=== PATIENT | female | born 1955 | race Caucasian/White ===

== ENCOUNTER 2017-07-19 19:48 | Emergency (ER) | payer OTHER, SELFPAY ==
[2017-07-19 20:28] VITALS: BP 116/71; PULSE 88; RESP 20; TEMP 36.8; O2SAT 98; BMI 26.6
[2017-07-19 20:29] VITALS: BP 116/71; PULSE 88; RESP 20; TEMP 36.8; O2SAT 98
[2017-07-19 20:30] VITALS: O2SAT 98
--- NOTE | 2017-07-19 21:03 | HMH.EDUTC ---
[facility] [place] Clinical Impression: Upper respiratory virus Disposition: Home, Self-Care Condition on Discharge: Good Instructions: DI for Viral Upper Respiratory Infection -- Adult Additional Instructions: * No sign of bacterial infection. Likely viral. Virus can take 7-14 days to run their course * Important that you closely monitor blood sugars when sick. Can get low if not eating well but can get high if infection. * Monitor Temp. Follow up if fever develops. * Encourage fluids, water, gatorade, powerade, pedialyte if /toddler/child * warm salt water gargles * warm fluids * sore throat lozenges * sleep elevated * humidifier/vaporizer * Start your flonase 2 sprays each nostril daily but may take 2-3 days to notice improvement with it. * Mucinex during the day for your cough and cough suppressant only at night. Be sure to drink lots of water. Insurance may not cover a prescription of mucinex. Might be cheaper to get 400mg tablets and take 2 tablets morning, midday and evening all with lots of water. * Use caution with otc cough and cold medications. Syrups can elevate your blood sugar and decongestants can elevate your blood pressure * * Your throat swab was sent for culture. Those results are typically sent to your primary care. Be sure to follow up in 2-3 days if no improvement so they can review those results and treat if necessary. If you don't have primary care, I recommend you get one but in the mean time, you will have to return to a walk in clinic. Referrals: Milton Tang MD [Primary Care Provider] - ( Follow up IMMEDIATELY for new or worsening symptoms OR no noticeable improvement over the next 48-72 hours. 911 for difficulty breathing or swallowing.) Time of Disposition: 21:15 Medical Decision Making Vital Signs: 07/19/17 20:28 07/19/17 20:29 07/19/17 20:30 Temperature 98.2 F 98.2 F Temperature Source Oral Tympanic Pulse Rate [Left Brachial] 88 Pulse Rate [Right Brachial] 88 Respiratory Rate 20 20 Blood Pressure [Left Arm] 116/71 Blood Pressure [Right Arm] 116/71 Blood Pressure Mean [Left Arm] 86 Blood Pressure Mean [Right Arm] 86 Blood Pressure Source [Left Arm] Automatic Cuff Blood Pressure Source [Right Arm] Automatic Cuff Blood Pressure Position [Left Arm] Sitting Blood Pressure Position [Right Arm] Sitting 02 Sat by Pulse Oximetry 98 98 98 Oxygen Delivery Method Room Air Room Air Room Air - Lab Data Lab results reviewed: Yes: I reviewed the patient's lab results. Lab Results 07/19/17 20:38: Influenza Type A Ag Negative, Influenza Type B Ag Negative, Strep Scn Rapid Clinic Negative Orders (Tests/Meds): ORDERS Category Date Time Status Strep Screen Confirmation Stat Micro 07/19/17 20:38 Received - [place] Inquiry Pt receiving controlled substance: No [facility] [place] - General Stated complaint: ear.sore throat.cough Time Seen by Provider: 07/19/17 20:55 Mode of Arrival: Ambulatory Source of Information: Patient Limitations: No Limitations Description of Symptoms (Recalled from Triage Doc. by RN): c/o sore throat, earache, cough HEENT Symptoms (Recalled from RN notes): Yes (sore throat, earache) Resp Symptoms (Recalled from RN notes): Yes (cough) Skin Symptoms (Recalled from RN notes): No MS Symptoms (Recalled from RN notes): No Functional Status (Recalled from RN notes): n/a - History of Present Illness Provider Complaint: c/o sore throat, rona ear aches, cough. Started 2-3 days ago. Spouse with same symptoms. Dx sinusitis and ear infections. No fever, aches, chills. Hasn't taken or tried anything for symptoms. Has flonase at home but didn't start it. 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
--- NOTE | 2017-07-19 21:06 | ED_ITS ---
[facility] [place] Impression: Upper respiratory virus Disposition: Home, Self-Care Condition on Discharge: Good Instructions: DI for Viral Upper Respiratory Infection -- Adult Additional Instructions: * No sign of bacterial infection. Likely viral. Virus can take 7-14 days to run their course * Important that you closely monitor blood sugars when sick. Can get low if not eating well but can get high if infection. * Monitor Temp. Follow up if fever develops. * Encourage fluids, water, gatorade, powerade, pedialyte if /toddler/ child * warm salt water gargles * warm fluids * sore throat lozenges * sleep elevated * humidifier/vaporizer * Start your flonase 2 sprays each nostril daily but may take 2-3 days to notice improvement with it. * Mucinex during the day for your cough and cough suppressant only at night. Be sure to drink lots of water. Insurance may not cover a prescription of mucinex. Might be cheaper to get 400mg tablets and take 2 tablets morning, midday and evening all with lots of water. * Use caution with otc cough and cold medications. Syrups can elevate your blood sugar and decongestants can elevate your blood pressure * * Your throat swab was sent for culture. Those results are typically sent to your primary care. Be sure to follow up in 2-3 days if no improvement so they can review those results and treat if necessary. If you don't have primary care , I recommend you get one but in the mean time, you will have to return to a walk in clinic. Referrals: Milton Tang MD [Primary Care Provider] - ( Follow up IMMEDIATELY for new or worsening symptoms OR no noticeable improvement over the next 48-72 hours. 911 for difficulty breathing or swallowing.) Time of Disposition: 21:15 Medical Decision Making Vital Signs: 07/19/17 20:28 07/19/17 20:29 07/19/17 20:30 Temperature 98.2 F 98.2 F Temperature Source Oral Tympanic Pulse Rate [Left Brachial] 88 Pulse Rate [Right Brachial] 88 Respiratory Rate 20 20 Blood Pressure [Left Arm] 116/71 Blood Pressure [Right Arm] 116/71 Blood Pressure Mean [Left Arm] 86 Blood Pressure Mean [Right Arm] 86 Blood Pressure Source [Left Arm] Automatic Cuff Blood Pressure Source [Right Arm] Automatic Cuff Blood Pressure Position [Left Arm] Sitting Blood Pressure Position [Right Arm] Sitting 02 Sat by Pulse Oximetry 98 98 98 Oxygen Delivery Method Room Air Room Air Room Air - Lab Data Lab results reviewed: Yes: I reviewed the patient's lab results. Lab Results 07/19/17 20:38: Influenza Type A Ag Negative, Influenza Type B Ag Negative, Strep Scn Rapid Clinic Negative Orders (Tests/Meds): ORDERS Category Date Time Status Strep Screen Confirmation Stat Micro 07/19/17 20:38 Received - [place] Inquiry Pt receiving controlled substance: No [facility] [place] - General Stated complaint: ear.sore throat.cough Time Seen by Provider: 07/19/17 20:55 Mode of Arrival: Ambulatory Source of Information: Patient Limitations: No Limitations Description of Symptoms (Recalled from Triage Doc. by RN): c/o sore throat, earache, cough HEENT Symptoms (Recalled from RN notes): Yes (sore throat, earache) Resp Symptoms (Recalled from RN notes): Yes (cough) Skin Symptoms (Recalled from RN notes): No MS Symptoms (Recalled from RN notes): No Functional Status (Recalled from RN notes): n/a - History of Present Illness
[2017-07-19 21:12] LABS: UTC Influenza A Antigen Negative (Negative); UTC Influenza B Antigen Negative (Negative)
[2017-07-19 21:13] LABS: UTC Strep Screen (Rapid) Negative (Negative)
[2017-07-19 21:30] VITALS: BP 116/71; PULSE 88; RESP 20; TEMP 36.8; O2SAT 98
== END 2017-07-19 21:31 | disposition home or self-care (01) ==
PROVIDERS: Emergency Provider Nurse Practitioner Family; PCP Internal Medicine Adolescent Medicine
DX: J06.9 Acute upper respiratory infection, unspecified (principal); F41.9 Anxiety disorder, unspecified
CPT/HCPCS: 87804; 87880; 99202

== ENCOUNTER 2017-08-21 11:05 | Emergency (ER) | payer OTHER, SELFPAY ==
[2017-08-21 11:20] VITALS: BP 123/67; PULSE 83; RESP 18; TEMP 36.8; O2SAT 98; BMI 36.5
--- NOTE | 2017-08-21 11:20 | XR_ITS ---
XR foot LT 2V HISTORY: Pain following twisting injury ITS.REASON: LEFT FOOT ORDERING PHYSICIAN: Lindsey Adams PATIENT AGE: 61 years COMPARISON: None FINDINGS: No fracture or dislocation. No lytic or blastic change. There is normal mineralization.. The joint spaces are well-preserved. No significant degenerative/arthritic changes. No erosive changes evident. 14 mm calcaneal spur present. IMPRESSION: No acute finding
--- NOTE | 2017-08-21 11:31 | HMH.EDUTC ---
[facility] [place] Clinical Impression: Foot sprain Qualifiers: Encounter type: initial encounter Laterality: left Qualified Code(s): S93.602A - Unspecified sprain of left foot, initial encounter Disposition: Home, Self-Care Condition on Discharge: Good Instructions: How To Perform RICE (Rest, Ice, Compress, Elevate), DI for Foot Sprain Additional Instructions: *RICE, Rest the extremity, Ice 15-20 minutes 3-4 times daily, Compress- wear the rico wrap as discussed as much as possible to help reduce swelling and pain, Elevate the extremity when at rest *Rico wrap is for support and help control swelling, use it except in the shower. Be sure that is not to tight but not to loose either *Elevate when resting *Ibuprofen every 6-8 hours as needed for pain an inflammation. If need something more can take Tylenol in between doses of Ibuprofen to help Immediately follow up for new or worsening of symptoms, or no noticeable improvement over the next 3-5 days Follow up with family doctor for referral to Orthopedics if warranted Referrals: Milton Tang MD [Primary Care Provider] - Time of Disposition: 11:57 Medical Decision Making - Medical Records Medical records reviewed: Yes: I reviewed the patient's medical records. Vital Signs: 08/21/17 11:20 Temperature 98.2 F Temperature Source Temporal Artery Scan Pulse Rate [Right] 83 Respiratory Rate 18 Blood Pressure [Right Arm] 123/67 Blood Pressure Mean [Right Arm] 85 Blood Pressure Source [Right Arm] Automatic Cuff Blood Pressure Position [Right Arm] Sitting 02 Sat by Pulse Oximetry 98 Oxygen Delivery Method Room Air - Radiology Data #1 Image(s): Foot/Toes Image Reviewed: Yes I have reviewed radiologist's interpretation Preliminary Findings: Normal/NAD, No Fracture Seen - [place] Inquiry Pt receiving controlled substance: No [place] was queried for this patient: No [facility] [place] - General Stated complaint: AO Mode of Arrival: Ambulatory Source of Information: Patient Limitations: No Limitations Description of Symptoms (Recalled from Triage Doc. by RN): FELL LAST NIGHT, INJURY LEFT FOOT HEENT Symptoms (Recalled from RN notes): No Resp Symptoms (Recalled from RN notes): No Skin Symptoms (Recalled from RN notes): No MS Symptoms (Recalled from RN notes): Yes Functional Status (Recalled from RN notes): N - History of Present Illness Provider Complaint: Patient state that she slipped in the mud last night and fell and she bent her left foot/ankle back State that her shoe flu off and she twisted that foot and ankle State that ever since she is having pain and mild swelling in the left foot - Related Data Home Medications Medication Instructions Recorded Confirmed Glimepiride [Glimepiride] 4 mg PO DAILY 08/21/17 08/21/17 No Known Home Medications [No 08/21/17 08/21/17 Known Home Medications] Valsartan/Hydrochlorothiazide 1 each PO DAILY 08/21/17 08/21/17 [Valsartan-Hctz 160-12.5 mg Tab] Allergies Allergy/AdvReac Type Severity Reaction Status Date / Time No Known Allergies Allergy Verified 08/21/17 11:26 - Worker's Comp Is this a Worker's Comp case?: No [facility] History I have reviewed the patient's past medical history: Yes Medical History: Reports:: Diabetes Mellitus Type 2, Hyperlipidemia, Hypertension Denies:: Cancer, Diabetes Mellitus Type 1, MRSA Laterality Cases: Left: Breast Biopsy, Bilateral: Tonsillectomy Other Surgeries: Yes: Other (left ovary removed) Amputation: No Fractures: No - *Social History Smoking Status: Never smoker Alcohol Intake: never - Psychiatric History Expresses thoughts of harming self/others: None Suicide Plan Description: No Plan ROS Obtained: Yes All systems reviewed & no additional complaints Physical Exam - General General appearance: alert, in no apparent distress - ENT ENT exam: Present: normal exam, normal oropharynx, mucous membranes moist, TM's normal bilaterally, normal external ear ex
--- NOTE | 2017-08-21 11:43 | ED_ITS ---
[facility] [place]: Foot sprain Qualifiers: Encounter type: initial encounter Laterality: left Qualified Code(s): S93.602A - Unspecified sprain of left foot, initial encounter Disposition: Home, Self-Care Condition on Discharge: Good Instructions: How To Perform RICE (Rest, Ice, Compress, Elevate), DI for Foot Sprain Additional Instructions: *RICE, Rest the extremity, Ice 15-20 minutes 3-4 times daily, Compress- wear the rico wrap as discussed as much as possible to help reduce swelling and pain, Elevate the extremity when at rest *Rico wrap is for support and help control swelling, use it except in the shower. Be sure that is not to tight but not to loose either *Elevate when resting *Ibuprofen every 6-8 hours as needed for pain an inflammation. If need something more can take Tylenol in between doses of Ibuprofen to help Immediately follow up for new or worsening of symptoms, or no noticeable improvement over the next 3-5 days Follow up with family doctor for referral to Orthopedics if warranted Referrals: Milton Tang MD [Primary Care Provider] - Time of Disposition: 11:57 Medical Decision Making - Medical Records Medical records reviewed: Yes: I reviewed the patient's medical records. Vital Signs: 08/21/17 11:20 Temperature 98.2 F Temperature Source Temporal Artery Scan Pulse Rate [Right] 83 Respiratory Rate 18 Blood Pressure [Right Arm] 123/67 Blood Pressure Mean [Right Arm] 85 Blood Pressure Source [Right Arm] Automatic Cuff Blood Pressure Position [Right Arm] Sitting 02 Sat by Pulse Oximetry 98 Oxygen Delivery Method Room Air - Radiology Data #1 Image(s): Foot/Toes Image Reviewed: Yes I have reviewed radiologist's interpretation Preliminary Findings: Normal/NAD, No Fracture Seen - [place] Inquiry Pt receiving controlled substance: No [place] was queried for this patient: No [facility] [place] General Stated complaint: AO Mode of Arrival: Ambulatory Source of Information: Patient Limitations: No Limitations Description of Symptoms (Recalled from Triage Doc. by RN): FELL LAST NIGHT, INJURY LEFT FOOT HEENT Symptoms (Recalled from RN notes): No Resp Symptoms (Recalled from RN notes): No Skin Symptoms (Recalled from RN notes): No MS Symptoms (Recalled from RN notes): Yes Functional Status (Recalled from RN notes): N - History of Present Illness Provider Complaint: Patient state that she slipped in the mud last night and fell and she bent her left foot/ankle back State that her shoe flu off and she twisted that foot and ankle State that ever since she is having pain and mild swelling in the left foot - Related Data Home Medications Medication Instructions Recorded Confirmed Glimepiride [Glimepiride] 4 mg PO DAILY 08/21/17 08/21/17 No Known Home Medications [No 08/21/17 08/21/17 Known Home Medications] Valsartan/Hydrochlorothiazide 1 each PO DAILY 08/21/17 08/21/17 [Valsartan-Hctz 160-12.5 mg Tab] Allergies Allergy/AdvReac Type Severity Reaction Status Date / Time No Known Allergies Allergy Verified 08/21/17 11:26 - Worker's Comp Is this a Worker's Comp case?: No [facility] History I have reviewed the patient's past medical history: Yes Medical History: Reports:: Diabetes Mellitus Type 2, Hyperlipidemia, Hypertension Denies:: Cancer, Diabetes Mellitus Type 1, MRSA
[2017-08-21 12:05] VITALS: BP 122/60; PULSE 80; RESP 18; TEMP 36.8
== END 2017-08-21 12:06 | disposition home or self-care (01) ==
PROVIDERS: Emergency Provider Nurse Practitioner; PCP Internal Medicine Adolescent Medicine
DX: S93.602A Unspecified sprain of left foot, initial encounter (principal); W19.XXXA Unspecified fall, initial encounter
CPT/HCPCS: 73620; 99202

== ENCOUNTER → 2018-06-09 09:40 | Outpatient (POV) | payer OTHER, SELFPAY | PROVIDERS: Visit Provider Dermatology | DX: Z00.00 Encounter for general adult medical examination without abnormal findings (principal) ==

== ENCOUNTER 2018-09-20 19:44 | Observation (INO) ==
[2018-09-20 20:12] LABS: Basophils # 0.1 K/mm3 (0-0.2); Basophils % 1.2 % (0.1-2.0); Eosinophils # 0.4 K/mm3 (0.0-0.4); Eosinophils % 4.9 % (0.1-12.0); Hematocrit 49.4 % (37.0-47.0); Hemoglobin 16.8 g/dL (12.2-16.2); Lymphocytes # 3.7 K/mm3 (0.7-4.5); Lymphocytes % 43.1 % (10-50); Mean Corpuscular Hemoglobin 31.5 pg (27.0-31.2); Mean Corpuscular Volume 92.5 fl (81-99); Mean Platelet Volume 7.4 fl (7.4-10.4); Monocytes # 0.5 K/mm3 (0.1-1.0); Monocytes % 5.8 % (1.7-9.3); Neutrophils # 3.9 K/mm3 (1.8-7.8); Platelet Count 254 K/mm3 (142-424); Red Blood Count 5.34 M/mm3 (4.20-5.40); Red Cell Distribution Width 13.1 % (11.5-17.5); White Blood Count 8.6 K/mm3 (4.8-10.8)
[2018-09-20 20:20] LABS: Anion Gap 18.7 mEq/L (5-15); Blood Urea Nitrogen 21 mg/dL (7-18); Carbon Dioxide 24 mmol/L (21.0-32.0); Chloride 100 mmol/L (98-107); Glucose 174 mg/dL (74-106); Potassium 3.7 mmoL/L (3.5-5.1); Sodium 139 mmol/L (136-145)
--- NOTE | 2018-09-20 21:12 | Emergency Department Note ---
ED Disposition Clinical Impression: Obesity (BMI 30-39.9) Chest pain Qualifiers: Chest pain type: precordial pain Qualified Code(s): R07.2 - Precordial pain Diabetes Qualifiers: Diabetes mellitus type: type 2 Diabetes mellitus ocean transportation intermediary insulin use: with halfway use Diabetes mellitus complication status: with unspecified complications Qualified Code(s): E11.8 - Type 2 diabetes mellitus with unspecified complications; Z79.4 - shelter (current) use of insulin Disposition: Admitted as Observation Condition on Discharge: Good Referrals: Milton Tang MD [Primary Care Provider] - - Critical Care Critical Care Time: No Attestation: On 09/20/18, the high probability of a clinically significant, sudden or life threatening deterioration of the following system(s) required my full and direct attention, intervention and personal management. The time I documented below is in addition to time spent performing reported procedures but includes the following listed in this critical care notation. Medical Decision Making - Medical Records Medical records reviewed: Yes: I reviewed the patient's medical records. - [place] Inquiry Pt receiving controlled substance: No Vital Signs: 09/20/18 19:45 09/20/18 20:36 09/20/18 20:55 Temperature 98.3 F Temperature Source Oral Pulse Rate [Right Brachial] 108 H 88 85 Respiratory Rate 18 18 20 Blood Pressure [Right Arm] 142/69 H 129/70 131/75 Blood Pressure Mean [Right Arm] 93 89 93 Blood Pressure Source [Right Arm] Automatic Cuff Automatic Cuff Automatic Cuff Blood Pressure Position [Right Arm] Sitting Sitting Sitting 02 Sat by Pulse Oximetry 95 96 95 Oxygen Delivery Method Room Air Room Air Room Air - Lab Data Lab results reviewed: Yes: I reviewed the patient's lab results. Lab Results 09/20/18 19:55: WBC 8.6, RBC 5.34, Hgb 16.8 H, Hct 49.4 H, MCV 92.5, MCH 31.5 H, MCHC 34.0, RDW 13.1, Plt Count 254, MPV 7.4, Neut % (Auto) 45.0, Lymph % (Auto) 43.1, [place] % (Auto) 5.8, Eos % (Auto) 4.9, Baso % (Auto) 1.2, Neut # (Auto) 3.9, Lymph # (Auto) 3.7, [place] # (Auto) 0.5, Eos # (Auto) 0.4, Baso # (Auto) 0.1 09/20/18 19:55: Sodium 139, Potassium 3.7, Chloride 100, Carbon Dioxide 24, Anion Gap 18.7 H, BUN 21 H, Creatinine 0.92, Estimated Creat Clear 98, Estimated GFR 61, Est GFR ( Amer) 74, Glucose 174 H, Calcium 10.0, Troponin I < 0.02 Result diagrams: 09/20/18 19:55 09/20/18 19:55 Orders (Tests/Meds): ED MEDICATIONS Generic Name Dose Route Start Last Admin Trade Name Freq PRN Reason Stop Dose Admin Sodium Chloride 10 ml 09/20/18 19:50 09/20/18 19:56 Saline Flush 10ml Syringe IV 10/20/18 19:49 10 ml NEEDED PRN Administration Maintain IV Site Discontinued Medications Generic Name Dose Route Start Last Admin Trade Name Freq PRN Reason Stop Dose Admin Aspirin 243 mg 09/20/18 19:55 09/20/18 19:55 Aspirin 81mg Chewable Tablet PO 09/20/18 19:56 243 mg ONCE ONE Administration Aspirin 81 mg 09/20/18 19:56 09/20/18 19:57 Aspirin 81mg Chewable Tablet PO 09/20/18 19:57 81 mg ONCE ONE Administration ORDERS Category Date Time Status XR chest 2V Stat Exams 09/20/18 19:50 Taken Urinalysis and Microscopic Stat Lab 09/20/18 19:50 Ordered ECG Request by /Nse Stat Y 09/20/18 19:50 Ordered - Radiology Data #1 Image(s): Chest Image Reviewed: Yes I reviewed the patient's radiology image Preliminary Findings: Normal/NAD - ECG Data Tracing #1 Arrhythmias present: sinus tach Ischemic changes: non-specific ST-T wave changes - Physician Consults Physician Consulted: nell Reason -: Admission Chest Pain HPI - General Chief Complaint: Chest Pain Stated Complaint: CP Time Seen by Provider: 09/20/18 20:00 Mode of Arrival: Ambulatory Limitations: No Limitations Description of Symptoms (Recalled from ER Triage Doc. by RN): Pt states she has been having intermitten cp for about 2 weeks, that seemed to be worse tonight. She states she is not having the pain right now, and she denies any other symptoms at this time. - History of Present Illness HPI narrative: pt with chest pain over the last 2 weeks worse and more often today with hx of dm and no hx of known heart disease MD complaint: chest pain indicative of cardiac Onset (ago): day(s) Duration: now resolved Activity at onset: during rest Pain location: left chest Severity: moderate Quality: sharp Risk Factors for CAD: Hypercholesterolemia, Family Hx of CAD, Diabetes Treatments prior to or on arrival for Cardiac Chest Pain: none - HUGO Score for Non-Stemi Age of Patient: 60-69 years old Heart Rate: 90-109 bpm Systolic Blood Pressure: 140-159 mmHg Serum Creatinine: 0.80-1.19 mg/dl CHF [place] Class: I-No CHF Other Risk Factors: None Non-Stemi Risk Score: 104 - Related Data On Oral Contraceptives: No Home Medications Medication Instructions Recorded Confirmed Glimepiride 4 mg PO DAILY 08/21/17 09/20/18 aspirin 81 mg chewable tablet 81 mg PO ONCE 10/29/17 09/20/18 budesonide-formoterol HFA 160 2 inh INHALATION Q12H 10/29/17 09/20/18 mcg-4.5 mcg/actuation aerosol inhaler buspirone 5 mg tablet 5 mg PO ONCE 10/29/17 09/20/18 dapagliflozin 10 mg-metformin ER 1 tab PO ONCE 10/29/17 09/20/18 500 mg tablet,extended release 24hr dulaglutide 0.75 mg/0.5 mL 0.75 mg SUB-Q QWEEK 10/29/17 09/20/18 subcutaneous pen injector naproxen 250 mg tablet 250 mg PO TID 10/29/17 09/20/18 pravastatin 20 mg tablet 20 mg PO QHS 10/29/17 09/20/18 Losartan/Hydrochlorothiazide 1 each PO DAILY 03/08/18 09/20/18 [Losartan-Hctz 50-12.5 mg Tab] Empagliflozin [Jardiance] 25 mg PO DAILY 08/18/18 09/20/18 Metformin HCl [Metformin HCl ER] 500 mg PO DAILY 08/18/18 09/20/18 Fluticasone Propionate [Flonase 2 spr NS DAILY 09/20/18 09/20/18 50mcg nasal spray 16gm] Loratadine [Claritin] 10 mg PO DAILY 09/20/18 09/20/18 Previous Rx's Medication Instructions Recorded Benzonatate [Tessalon Perle 100mg 100 mg PO TIDP PRN #30 cap 08/18/18 Cap] Promethazine/Dextromethorphan 5 ml PO Q6HP PRN #240 syrup 08/18/18 [Promethazine-Dm Syrup] Allergies Allergy/AdvReac Type Severity Reaction Status Date / Time No Known Allergies Allergy Verified 09/20/18 19:50 [facility] History - Hepatitis A Screen Drug use history?: No High risk sexual behaviors?: No History of sexually transmitted infection?: No Currently employed?: No Childcare worker?: No Do you have indoor plumbing?: Yes Do you have electricity?: Yes Attestation statement:: This patient has been screened for Hepatitis A risk factors. I have reviewed the patient's past medical history: Yes Medical History: Reports:: Diabetes Mellitus Type 2, Hyperlipidemia, Hy pertension Denies:: Cancer, Diabetes Mellitus Type 1, MRSA Comment: anxiety Laterality Cases: Left: Breast Biopsy, Bilateral: Tonsillectomy Other Surgeries: Yes: Colonoscopy, Other Amputation: No Fractures: No - Social History Smoking Status: Never smoker Alcohol Intake: never Occupational Status: employed Housing: house - Psychiatric History Expresses thoughts of harming self/others: None Suicide Plan Description: No Plan Family Hx:: No significant family history ROS Obtained: Yes All systems reviewed & no additional complaints - Constitutional Constitutional: Denies fever(s) - Eyes Eyes: Denies change in vision - ENT Ears, Nose, Mouth, and Throat: Denies sore throat - Cardiovascular Cardiovascular: Reports chest pain, Denies dyspnea - Respiratory Respiratory: No cough - Gastrointestinal Gastrointestingal: Denies: abdominal pain - Genitourinary Female Genitourinary: Denies hematuria - Musculoskeletal Musculoskeletal: Denies joint pain - Integumentary/Breasts Skin/Breast: Denies rash - Neurologic Neurologic: Denies seizure-like activity Physical Exam - General General appearance: alert, in no apparent distress, obese - Head Head exam: normocephalic - Eye Eye exam: Present: PERRL, EOMI. Absent: scleral icterus - ENT ENT exam: Present: mucous membranes dry - Neck Neck exam: Present: trachea midline - Respiratory Respiratory exam: Present: normal lung sounds bilaterally. Absent: respiratory distress - Cardiovascular Cardiovascular exam: Present: regular rate, systolic murmur, +S4 - Abdominal Exam Abdominal exam: Present: soft - Extremities Exam Extremities exam: Present: full ROM. Absent: calf tenderness - Neurological Exam Neurological exam: Present: alert, CN II-XII intact - Psychiatric Psychiatric exam: Present: normal affect - Skin Skin exam: Absent: rash
[2018-09-21 03:41] LABS: Basophils # 0.1 K/mm3 (0-0.2); Basophils % 0.8 % (0.1-2.0); Eosinophils # 0.4 K/mm3 (0.0-0.4); Eosinophils % 5.5 % (0.1-12.0); Hematocrit 43.9 % (37.0-47.0); Lymphocytes # 3.5 K/mm3 (0.7-4.5); Lymphocytes % 43.8 % (10-50); Mean Corpuscular HGB Conc 33.9 g/dL (31.8-35.4); Mean Corpuscular Hemoglobin 31.7 pg (27.0-31.2); Mean Corpuscular Volume 93.6 fl (81-99); Mean Platelet Volume 7.4 fl (7.4-10.4); Monocytes # 0.5 K/mm3 (0.1-1.0); Monocytes % 5.8 % (1.7-9.3); Neutrophils # 3.5 K/mm3 (1.8-7.8); Platelet Count 211 K/mm3 (142-424); Red Blood Count 4.69 M/mm3 (4.20-5.40); Red Cell Distribution Width 13.2 % (11.5-17.5); White Blood Count 7.9 K/mm3 (4.8-10.8)
[2018-09-21 03:44] LABS: Hemoglobin 14.9 g/dL (12.2-16.2)
[2018-09-21 03:56] LABS: Anion Gap 15.8 mEq/L (5-15); Blood Urea Nitrogen 19 mg/dL (7-18); Calcium 9.4 mg/dL (8.5-10.1); Carbon Dioxide 26 mmol/L (21.0-32.0); Chloride 103 mmol/L (98-107); Chol/HDL Ratio 4.5 (1-3.5); Cholesterol 178 mg/dL (140-200); Glucose 184 mg/dL (74-106); HDL Cholesterol 40 mg/dL (29-89); LDL Cholesterol 118 mg/dL (0-130); Potassium 3.8 mmoL/L (3.5-5.1); Sodium 141 mmol/L (136-145); Triglycerides 100 mg/dL (30-200); VLDL Cholesterol 20 mg/dL (0-40)
--- NOTE | 2018-09-21 07:32 | Pharmacy Consult Notes ---
[facility] Pharmacy VTE Monitoring - Patient Demographics Admission date: 09/20/18 Report Date: 09/21/18 Time: 07:32 Allergies/Adverse Reactions: Patient Allergies No Known Allergies Allergy (Verified 09/20/18 19:50) Height: 1.73 m Weight: 108.55 kg Patient Problems: Current Active Problems Chest pain (Acute) Diabetes (Acute) Obesity (BMI 30-39.9) (Acute) - VTE Risk Labs: VTE Related Lab Results Hgb 14.9 g/dL (12.2-16.2) D 09/21/18 03:30 Hct 43.9 % (37.0-47.0) 09/21/18 03:30 Plt Count 211 K/mm3 (142-424) 09/21/18 03:30 BUN 19 mg/dL (7-18) H 09/21/18 03:30 Creatinine 0.69 mg/dL (0.55-1.02) D 09/21/18 03:30 Estimated Creat Clear 97 mL/min (50-200) 09/21/18 03:30 Was VTE Risk Assessment Performed: Yes VTE Score: 2 VTE Risk Level: Low Risk - Prophylaxis VTE Prophylaxis Ordered?: Yes Types of VTE Prophylaxis: TEDS Knee High Location of Applied Device: Bilateral Lower Extremeties - VTE Diagnosis Confirmed Treatment or plan recommended: Continue Current Treatment
--- NOTE | 2018-09-21 08:20 | History & Physical Report ---
*Admission Date: 09/20/18 *Chief complaint: Chest pain/nausea *History of present illness: 62-year-old white female with obesity and diabetes as well as a family history of cardiac disease who came to the emergency department late yesterday afternoon with sharp edges of chest pain in the left lateral anterior chest that radiated into the neck. Some exertional relationship to the pain. She was admitted to hospital for serial enzymes and risk stratification. [facility] History I have reviewed the patient's past medical history: Yes Medical History: Reports:: Diabetes Mellitus Type 2, Hyperlipidemia, Hypertension Denies:: Cancer, Diabetes Mellitus Type 1, MRSA *Have you ever received a pneumonia vaccine?: No *Have you received a flu vaccine this season?: Yes Laterality Cases: Left: Breast Biopsy, Bilateral: Tonsillectomy Other Surgeries: Yes: Colonoscopy, Other Amputation: No Fractures: No - *Social History Educational Level: Completed High School Smoking Status: Never smoker Alcohol Intake: never *Occupational Status:: employed Housing: house Household Members: spouse *Travel in the last 8 weeks: None - Psychiatric History Expresses thoughts of harming self/others: None Suicide Plan Description: No Plan Family Hx:: No significant family history Review of Systems - Review of Systems Review of systems:: pertinent systems reviewed and negative unless documented below - Constitutional Denies anorexia, Denies body ache(s), Denies chills - Eyes Denies blind spots - ENT Denies abnormal hearing - *Cardiovascular Reports chest pain, Denies chest pain at rest, Denies chest pain with activity - *Respiratory Denies change in phlegm color, Denies chest congestion - *Gastrointestinal Denies abdominal pain, Denies belching - *Genitourinary Denies abnormal periods - *Musculoskeletal Denies abnormal walking - Integumentary/Breasts Denies acne, Denies hair loss - *Neurologic Denies seizure-like activity - Psychiatric Denies abnormal sleep pattern Meds Home Medications Medication Instructions Recorded Confirmed Type Glimepiride 4 mg PO DAILY 08/21/17 09/20/18 History aspirin 81 mg chewable tablet 81 mg PO DAILY 10/29/17 09/21/18 History budesonide-formoterol HFA 160 2 inh INHALATION Q12H 10/29/17 09/20/18 History mcg-4.5 mcg/actuation aerosol inhaler buspirone 5 mg tablet 5 mg PO DAILY 10/29/17 09/21/18 History dapagliflozin 10 mg-metformin ER 1 tab PO DAILY 10/29/17 09/21/18 History 500 mg tablet,extended release 24hr dulaglutide 0.75 mg/0.5 mL 0.75 mg SUB-Q QWEEK 10/29/17 09/20/18 History subcutaneous pen injector naproxen 250 mg tablet 250 mg PO TID 10/29/17 09/20/18 History pravastatin 20 mg tablet 20 mg PO QHS 10/29/17 09/20/18 History Losartan/Hydrochlorothiazide 1 each PO DAILY 03/08/18 09/20/18 History [Losartan-Hctz 50-12.5 mg Tab] Benzonatate [Tessalon Perle 100mg 100 mg PO TIDP PRN #30 cap 08/18/18 09/20/18 Rx Cap] Empagliflozin [Jardiance] 25 mg PO DAILY 08/18/18 09/20/18 History Metformin HCl [Metformin HCl ER] 500 mg PO DAILY 08/18/18 09/20/18 History Promethazine/Dextromethorphan 5 ml PO Q6HP PRN #240 syrup 08/18/18 09/20/18 Rx [Promethazine-Dm Syrup] Fluticasone Propionate [Flonase 2 spr NS DAILY 09/20/18 09/20/18 History 50mcg nasal spray 16gm] Loratadine [Claritin] 10 mg PO DAILY 09/20/18 09/20/18 History Allergies Allergy/AdvReac Type Severity Reaction Status Date / Time No Known Allergies Allergy Verified 09/20/18 19:50 Exam Vital signs and Labs for Last 24 Hours: Temp Pulse Resp BP Pulse Ox 97.9 F 64 18 109/57 L 96 09/21/18 04:00 09/21/18 04:00 09/21/18 04:00 09/21/18 04:00 09/21/18 04:00 Laboratory Results - last 24 hr 09/20/18 19:55: WBC 8.6, RBC 5.34, Hgb 16.8 H, Hct 49.4 H, MCV 92.5, MCH 31.5 H, MCHC 34.0, RDW 13.1, Plt Count 254, MPV 7.4, Neut % (Auto) 45.0, Lymph % (Auto) 43.1, [place] % (Auto) 5.8, Eos % (Auto) 4.9, Baso % (Auto) 1.2, Neut # (Auto) 3.9, Lymph # (Auto) 3.7, [place] # (Auto) 0.5, Eos # (Auto) 0.4, Baso # (Auto) 0.1 09/20/18 19:55: Sodium 139, Potassium 3.7, Chloride 100, Carbon Dioxide 24, Anion Gap 18.7 H, BUN 21 H, Creatinine 0.92, Estimated Creat Clear 98, Estimated GFR 61, Est GFR ( Amer) 74, Glucose 174 H, Calcium 10.0, Troponin I < 0.02 09/21/18 00:30: Troponin I < 0.02 09/21/18 03:30: WBC 7.9, RBC 4.69, Hgb 14.9 D, Hct 43.9, MCV 93.6, MCH 31.7 H, MCHC 33.9, RDW 13.2, Plt Count 211, MPV 7.4, Neut % (Auto) 44.0, Lymph % (Auto) 43.8, [place] % (Auto) 5.8, Eos % (Auto) 5.5, Baso % (Auto) 0.8, Neut # (Auto) 3.5, Lymph # (Auto) 3.5, [place] # (Auto) 0.5, Eos # (Auto) 0.4, Baso # (Auto) 0.1 09/21/18 03:30: Sodium 141, Potassium 3.8, Chloride 103, Carbon Dioxide 26, Anion Gap 15.8 H, BUN 19 H, Creatinine 0.69 D, Estimated Creat Clear 97, E stimated GFR 86, Est GFR ( Amer) 104 D, Glucose 184 H, Calcium 9.4, Magnesium 2.1, Troponin I < 0.02, Triglycerides 100, Cholesterol 178, LDL Cholesterol 118, VLDL Cholesterol 20, HDL Cholesterol 40, Cholesterol/HDL Ratio 4.5 H 09/21/18 06:09: POC Glucose 171 H I & O for Last 24 hours: Intake & Output 09/18/18 09/19/18 09/20/18 09/21/18 11:59 11:59 11:59 11:59 Intake Total 385 / 385 Output Total 1000 / 1000 Balance -615 / -615 Weight 239 lb 5 oz Narrative: Patient is pleasant, alert, is pain-free at this point. ENT exam clear. No JVD. Lungs are clear, heart rate in the anterior left sternal border regular without murmurs. Morbid obesity limits the accuracy of her exam but she has no evident edema and distal perfusion is good. She is able to move all extremities well neurologic exam is intact. Assessment and Plan (1) Chest pain Current visit: Yes Status: Acute Qualifiers: Chest pain type: precordial pain Qualified Code(s): R07.2 - Precordial pain Category: Medical Code(s): R07.9 - Chest pain, unspecified Seems low risk. Nuclear imaging today. If negative will discharge. (2) Diabetes Current visit: Yes Status: Acute Qualifiers: Diabetes mellitus type: type 2 Diabetes mellitus manager intermediate insulin use: with long-term use Diabetes mellitus complication status: with unspecified complications Qualified Code(s): E11.8 - Type 2 diabetes mellitus with unspecified complications; Z79.4 - terminal operations manager (current) use of insulin Category: Medical Code(s): E11.9 - Type 2 diabetes mellitus without complications Currently fairly well controlled. No changes (3) Obesity (BMI 30-39.9) Current visit: Yes Status: Acute Category: Medical Code(s): E66.9 - Obesity, unspecified Complicates all aspects of her care.
--- NOTE | 2018-09-21 08:29 | Consult Report ---
Addendum entered and electronically signed by CARRIE Vazquez 09/21/18 12:12: Lexiscan myoview shows no ischemia with normal LVEF. OK for discharge home from cardiology standpoint. Original Note: History of Present Illness Consult date: 09/21/18 Requesting physician: Milton Tang Consult reason: chest pain Chief complaint: chest pain Additional Medical History:: 1. HTN 2. DM, type 2 3. FH of CAD in father at age 64 and mother in her late 60's 4. Overweight History of present illness: 62-year-old white female with obesity and diabetes as well as a family history of cardiac disease who came to the emergency department late yesterday afternoon with sharp edges of chest pain in the left lateral anterior chest that radiated into the neck. Some exertional relationship to the pain. She was admitted to hospital for serial enzymes and risk stratification The above per Dr. Tang Denies tobacco use. Cardiac enzymes normal X3. Preliminary echo shows normal LVEF without significant valve disease. [facility] History Medical History: Reports:: Diabetes Mellitus Type 2, Hyperlipidemia, Hypertension Denies:: Cancer, Diabetes Mellitus Type 1, MRSA *Have you ever received a pneumonia vaccine?: No *Have you received a flu vaccine this season?: Yes Laterality Cases: Left: Breast Biopsy, Bilateral: Tonsillectomy Other Surgeries: Yes: Colonoscopy, Other Amputation: No Fractures: No - *Social History Educational Level: Completed High School Smoking Status: Never smoker Alcohol Intake: never *Occupational Status:: employed Housing: house Household Members: spouse *Travel in the last 8 weeks: None - Psychiatric History Expresses thoughts of harming self/others: None Suicide Plan Description: No Plan Family Hx:: No significant family history Meds Home Medications Medication Instructions Recorded Confirmed Type Glimepiride 4 mg PO DAILY 08/21/17 09/20/18 History aspirin 81 mg chewable tablet 81 mg PO DAILY 10/29/17 09/21/18 History budesonide-formoterol HFA 160 2 inh INHALATION Q12H 10/29/17 09/20/18 History mcg-4.5 mcg/actuation aerosol inhaler buspirone 5 mg tablet 5 mg PO DAILY 10/29/17 09/21/18 History dapagliflozin 10 mg-metformin ER 1 tab PO DAILY 10/29/17 09/21/18 History 500 mg tablet,extended release 24hr dulaglutide 0.75 mg/0.5 mL 0.75 mg SUB-Q QWEEK 10/29/17 09/20/18 History subcutaneous pen injector naproxen 250 mg tablet 250 mg PO TID 10/29/17 09/20/18 History pravastatin 20 mg tablet 20 mg PO QHS 10/29/17 09/20/18 History Losartan/Hydrochlorothiazide 1 each PO DAILY 03/08/18 09/20/18 History [Losartan-Hctz 50-12.5 mg Tab] Benzonatate [Tessalon Perle 100mg 100 mg PO TIDP PRN #30 cap 08/18/18 09/20/18 Rx Cap] Empagliflozin [Jardiance] 25 mg PO DAILY 08/18/18 09/20/18 History Metformin HCl [Metformin HCl ER] 500 mg PO DAILY 08/18/18 09/20/18 History Promethazine/Dextromethorphan 5 ml PO Q6HP PRN #240 syrup 08/18/18 09/20/18 Rx [Promethazine-Dm Syrup] Fluticasone Propionate [Flonase 2 spr NS DAILY 09/20/18 09/20/18 History 50mcg nasal spray 16gm] Loratadine [Claritin] 10 mg PO DAILY 09/20/18 09/20/18 History Allergies Allergy/AdvReac Type Severity Reaction Status Date / Time No Known Allergies Allergy Verified 09/20/18 19:50 Review of Systems - *Cardiovascular Reports chest pain, Denies shortness of breath - *Respiratory Denies cough, Denies shortness of breath - *Gastrointestinal Denies abdominal pain, Denies change in stools, Denies vomiting - *Genitourinary Denies blood in urine - *Musculoskeletal Denies joint pain, Denies back pain - *Neurologic Denies abnormal walking, Denies abnormal hearing, Denies seizure-like activity Exam Vital signs and Labs for Last 24 Hours: Temp Pulse Resp BP Pulse Ox 97.9 F 64 18 109/57 L 96 09/21/18 04:00 09/21/18 04:00 09/21/18 04:00 09/21/18 04:00 09/21/18 04:00 Laboratory Results - last 24 hr 09/20/18 19:55: WBC 8.6, RBC 5.34, Hgb 16.8 H, Hct 49.4 H, MCV 92.5, MCH 31.5 H, MCHC 34.0, RDW 13.1, Plt Count 254, MPV 7.4, Neut % (Auto) 45.0, Lymph % (Auto) 43.1, [place] % (Auto) 5.8, Eos % (Auto) 4.9, Baso % (Auto) 1.2, Neut # (Auto) 3.9, Lymph # (Auto) 3.7, [place] # (Auto) 0.5, Eos # (Auto) 0.4, Baso # (Auto) 0.1 09/20/18 19:55: Sodium 139, Potassium 3.7, Chloride 100, Carbon Dioxide 24, Anion Gap 18.7 H, BUN 21 H, Creatinine 0.92, Estimated Creat Clear 98, Estimated GFR 61, Est GFR ( Amer) 74, Glucose 174 H, Calcium 10.0, Troponin I < 0.02 09/21/18 00:30: Troponin I < 0.02 09/21/18 03:30: WBC 7.9, RBC 4.69, Hgb 14.9 D, Hct 43.9, MCV 93.6, MCH 31.7 H, MCHC 33.9, RDW 13.2, Plt Count 211, MPV 7.4, Neut % (Auto) 44.0, Lymph % (Auto) 43.8, [place] % (Auto) 5.8, Eos % (Auto) 5.5, Baso % (Auto) 0.8, Neut # (Auto) 3.5, Lymph # (Auto) 3.5, [place] # (Auto) 0.5, Eos # (Auto) 0.4, Baso # (Auto) 0.1 09/21/18 03:30: Sodium 141, Potassium 3.8, Chloride 103, Carbon Dioxide 26, Ani on Gap 15.8 H, BUN 19 H, Creatinine 0.69 D, Estimated Creat Clear 97, Estimated GFR 86, Est GFR ( Amer) 104 D, Glucose 184 H, Calcium 9.4, Magnesium 2.1, Troponin I < 0.02, Triglycerides 100, Cholesterol 178, LDL Cholesterol 118, VLDL Cholesterol 20, HDL Cholesterol 40, Cholesterol/HDL Ratio 4.5 H 09/21/18 06:09: POC Glucose 171 H I & O for Last 24 hours: Intake & Output 09/18/18 09/19/18 09/20/18 09/21/18 11:59 11:59 11:59 11:59 Intake Total 385 / 385 Output Total 1000 / 1000 Balance -615 / -615 Weight 239 lb 5 oz - *Routine HEENT Exam Head: Present: normocephalic Eye: Present: EOMI, PERRL ENT: Present: mucous membranes moist - *Routine Neck Exam Present: supple. Absent: JVD, carotid bruit - *Routine Respiratory Exam Present: CTA bilaterally. Absent: accessory muscle use, rales, rhonchi, wheezes - *Routine Cardiovascular Exam Present: RRR. Absent: murmur, gallop, rubs - *Routine Abdominal Exam Present: soft. Absent: tenderness, distended, guarding - *Routine Extremities Exam Absent: edema, calf tenderness - *Routine Neurological Exam Present: alert, oriented X3, moving all extremities Assessment and Plan (1) Chest pain Current visit: Yes Status: Acute Qualifiers: Chest pain type: precordial pain Qualified Code(s): R07.2 - Precordial pain Category: Medical Code(s): R07.9 - Chest pain, unspecified (2) Diabetes Current visit: Yes Status: Acute Qualifiers: Diabetes mellitus type: type 2 Diabetes mellitus terminal block assembler insulin use: with intermediate use Diabetes mellitus complication status: with unspecified complications Qualified Code(s): E11.8 - Type 2 diabetes mellitus with unspecified complications; Z79.4 - assisted (current) use of insulin Category: Medical Code(s): E11.9 - Type 2 diabetes mellitus without complications (3) Obesity (BMI 30-39.9) Current visit: Yes Status: Acute Category: Medical Code(s): E66.9 - Obesity, unspecified - Assessment and plan all Dx Assessment and Plan for all problems:: 1. With atypical chest pain and normal troponins and essentially normal echo, Recommend stress testing (lexiscan myoview) due to CAD risk factors of diabetes, obesity, HTN, HLD and strong FH of CAD. 2. Further recommendations pending results of stress test.
--- NOTE | 2018-09-21 13:34 | Discharge Summary ---
General - General Admission date:: 09/20/18 Discharge date: 09/21/18 HPI HPI: 62-year-old white female with obesity and diabetes as well as a family history of cardiac disease who came to the emergency department late yesterday afternoon with sharp edges of chest pain in the left lateral anterior chest that radiated into the neck. Some exertional relationship to the pain. She was admitted to hospital for serial enzymes and risk stratification. Hospital Course Hospital Course: Because of her risk factors patient was admitted, ruled out for myocardial infarction and subjected echocardiogram which initially read as normal per preliminary report. Myoview cardiac scan was also done with no evidence of flow restriction or evidence of coronary disease. Patient's chest pain was deemed to be atypical. She will be discharged home today, follow-up in 1 week of my office to discuss cardiac risk factors and to review her general medical situation. Objective Vital signs: Temp Pulse Resp BP Pulse Ox 98.0 F 73 18 120/61 95 09/21/18 12:00 09/21/18 12:00 09/21/18 12:00 09/21/18 12:00 09/21/18 12:00 no acute distress, morbidly obese - *Routine HEENT Exam Head: Present: normocephalic, atraumatic - *Routine Neck Exam Present: supple, full ROM. Absent: JVD - Routine Chest/Breast/Axilla Exam Chest wall: Absent: tenderness - *Routine Respiratory Exam Present: CTA bilaterally. Absent: accessory muscle use - *Routine Cardiovascular Exam Present: RRR, Normal S1, Normal S2. Absent: murmur - *Routine Abdominal Exam Present: soft, normoactive bowel sounds - *Routine Extremities Exam Present: full ROM. Absent: cyanosis, clubbing, edema - *Routine Neurological Exam Present: alert, oriented X3, CN II-XII intact Results Labs on day of discharge: Labs from last 24 hours 09/21/18 09/21/18 09/21/18 11:54 06:09 03:30 WBC RBC Hgb Hct MCV MCH MCHC RDW Plt Count MPV Neut % (Auto) Lymph % (Auto) [place] % (Auto) Eos % (Auto) Baso % (Auto) Neut # (Auto) Lymph # (Auto) [place] # (Auto) Eos # (Auto) Baso # (Auto) Sodium 141 Potassium 3.8 Chloride 103 Carbon Dioxide 26 Anion Gap 15.8 H BUN 19 H Creatinine 0.69 D Estimated Creat Clear 97 Estimated GFR 86 Est GFR ( Amer) 104 D Glucose 184 H POC Glucose 163 H 171 H Calcium 9.4 Magnesium 2.1 Troponin I < 0.02 Triglycerides 100 Cholesterol 178 LDL Cholesterol 118 VLDL Cholesterol 20 HDL Cholesterol 40 Cholesterol/HDL Ratio 4.5 H 09/21/18 09/21/18 09/20/18 03:30 00:30 19:55 WBC 7.9 RBC 4.69 Hgb 14.9 D Hct 43.9 MCV 93.6 MCH 31.7 H MCHC 33.9 RDW 13.2 Plt Count 211 MPV 7.4 Neut % (Auto) 44.0 Lymph % (Auto) 43.8 [place] % (Auto) 5.8 Eos % (Auto) 5.5 Baso % (Auto) 0.8 Neut # (Auto) 3.5 Lymph # (Auto) 3.5 [place] # (Auto) 0.5 Eos # (Auto) 0.4 Baso # (Auto) 0.1 Sodium 139 Potassium 3.7 Chloride 100 Carbon Dioxide 24 Anion Gap 18.7 H BUN 21 H Creatinine 0.92 Estimated Creat Clear 98 Estimated GFR 61 Est GFR ( Amer) 74 Glucose 174 H POC Glucose Calcium 10.0 Magnesium Troponin I < 0.02 < 0.02 Triglycerides Cholesterol LDL Cholesterol VLDL Cholesterol HDL Cholesterol Cholesterol/HDL Ratio 09/20/18 19:55 WBC 8.6 RBC 5.34 Hgb 16.8 H Hct 49.4 H MCV 92.5 MCH 31.5 H MCHC 34.0 RDW 13.1 Plt Count 254 MPV 7.4 Neut % (Auto) 45.0 Lymph % (Auto) 43.1 [place] % (Auto) 5.8 Eos % (Auto) 4.9 Baso % (Auto) 1.2 Neut # (Auto) 3.9 Lymph # (Auto) 3.7 [place] # (Auto) 0.5 Eos # (Auto) 0.4 Baso # (Auto) 0.1 Sodium Potassium Chloride Carbon Dioxide Anion Gap BUN Creatinine Estimated Creat Clear Estimated GFR Est GFR ( Amer) Glucose POC Glucose Calcium Magnesium Troponin I Triglycerides Cholesterol LDL Cholesterol VLDL Cholesterol HDL Cholesterol Cholesterol/HDL Ratio DS: Diagnosis - Discharge Diagnosis (1) Chest pain Status: Resolved (2) Diabetes Status: Chronic (3) Obesity (BMI 30-39.9) Status: Chronic Discharge Plan - Patient Discharge Instructions - Follow up Plan Home Medications: Home Medications Medication Instructions Recorded Confirmed Type Glimepiride 8 mg PO DAILY 08/21/17 09/21/18 History aspirin 81 mg chewable tablet 81 mg PO DAILY 10/29/17 09/21/18 History budesonide-formoterol HFA 160 2 inh INHALATION BID 10/29/17 09/21/18 History mcg-4.5 mcg/actuation aerosol inhaler buspirone 5 mg tablet 5 mg PO BIDP PRN 10/29/17 09/21/18 History naproxen 250 mg tablet 250 mg PO DAILY 10/29/17 09/21/18 History Losartan/Hydrochlorothiazide 1 each PO DAILY 03/08/18 09/20/18 History [Losartan-Hctz 50-12.5 mg Tab] Benzonatate [Tessalon Perle 100mg 100 mg PO TIDP PRN #30 cap 08/18/18 09/20/18 Rx Cap] Empagliflozin [Jardiance] 25 mg PO DAILY 08/18/18 09/20/18 History Metformin HCl [Metformin HCl ER] 1,000 mg PO BID 08/18/18 09/21/18 History Fluticasone Propionate [Flonase 2 spr NS DAILY 09/20/18 09/20/18 History 50mcg nasal spray 16gm] Loratadine [Claritin] 10 mg PO DAILY 09/20/18 09/20/18 History Pravastatin Sodium [Pravachol] 80 mg PO HS 09/21/18 09/21/18 History Prescriptions/Medication Reconciliation: No Action budesonide-formoterol HFA 160 mcg-4.5 mcg/actuation aerosol inhaler 2 inh INHALATION BID aspirin 81 mg chewable tablet 81 mg PO DAILY naproxen 250 mg tablet 250 mg PO DAILY buspirone 5 mg tablet 5 mg PO BIDP PRN PRN Reason: Anxiety Glimepiride 8 mg PO DAILY Losartan/Hydrochlorothiazide [Losartan-Hctz 50-12.5 mg Tab] 1 each PO DAILY Benzonatate [Tessalon Perle 100mg Cap] 100 mg PO TIDP PRN #30 cap PRN Reason: Cough Loratadine [Claritin] 10 mg PO DAILY Fluticasone Propionate [Flonase 50mcg nasal spray 16gm] 2 spr NS DAILY Metformin HCl [Metformin HCl ER] 1,000 mg PO BID Empagliflozin [Jardiance] 25 mg PO DAILY Pravastatin Sodium [Pravachol] 80 mg PO HS
--- NOTE | 2018-09-21 18:43 | Cardiology Report ---
PROCEDURE: 2-D M-mode and color Doppler study INDICATIONS FOR THE TEST: Chest pain + COPD+ Heart Murmur Tobacco Smoking Palpitations Fatigue Syncope Edema Hypertension+Diabetes Mellitus+ Rheumatic Fever SOB WANG Obesity Hyperlipidemia+ Family History HD Additional History PATIENT INFORMATION HEIGHT: 66 WEIGHT:240 GENDER: Female B/P:129/70 2-D/M-MODE INTERPRETATION: 2-D MEASUREMENTS OBSERVED VALUES IN CMS Right Ventricular Dimension (RVDd) 2.1 Interventricular Septum (Thickness)(IVsd) 1.8 Left Ventricular Internal Dimensions(LVIDd) 3.8 Left Ventricular Posterior Wall (Thickness)(LVPWd) 1.1 Aortic Root 3.2 Aortic Cusp Separation 1.9 Left Atrial Dimensions (LAD) 3.7 2D 1. Left atrium is mildly enlarged, left ventricle is normal size, mild concentric left ventricular hypertrophy, visually estimated ejection fraction 55% with no regional wall motion abnormality. 2. The right atrium and right ventricle are relatively normal size and function. 3. The aortic valve is minimally thickened and fibrosed. 4. The mitral and tricuspid valve leaflets are thickened. 5. The pulmonic valve is poorly visualized. 6. Significant pericardial effusion noted. DOPPLER INTERROGATION: Doppler interrogation of the aortic, mitral and tricuspid valve reveals presence of mild mitral and tricuspid regurgitation, tricuspid regurgitation jet velocity is inadequate for calculation of the right ventricular systolic pressure, grade 1 diastolic dysfunction seen without tissue Doppler evidence of raised left atrial pressure. CONCLUSION: 1. Mildly enlarged left atrium, normal left ventricular size, mild concentric left ventricular hypertrophy, visually estimated ejection fraction 55% with no regional wall motion abnormality. Grade 1 diastolic dysfunction seen without tissue Doppler evidence of raised left atrial pressure. 2. Mild mitral and tricuspid regurgitation 3. No significant pericardial effusion noted.
== END 2018-09-21 14:35 | disposition home or self-care (01) ==
LOC: ER 19:44 → 2ND 19:44
PROVIDERS: ADMIT Internal Medicine Adolescent Medicine; ATTEND Internal Medicine Adolescent Medicine
CPT/HCPCS: 36415; 71020; 71046; 78452; 80048; 80061; 82962; 83735; 84484; 85025; 93005; 93017; 93306; 99284; A9502; G0378; J2785

== ENCOUNTER → 2019-08-05 16:05 | Outpatient (CLI) | payer MEDICARE, OTHER, SELFPAY ==
--- NOTE | 2019-08-05 16:14 | XR_ITS ---
PROCEDURE: XR FOOT LT MIN 3V CLINICAL INDICATION: LT FOOT PAIN COMPARISON: [id number] XR foot LT 2V from 08/21/2017 FINDINGS: There is a nondisplaced longitudinal fracture involving the proximal shaft of the proximal phalanx of the 5th toe medially. There is a small calcaneal spur. A small linear calcific density overlies the anterior aspect of the navicular which could be related to an old injury. IMPRESSION: Nondisplaced fracture of the proximal phalanx of the 5th toe Dictated by: Ty Wyman MD 08/05/2019 16:36 Electronically signed by Ty Wyman MD in [place] 08/05/2019 16:36
== END ==
PROVIDERS: PCP Nurse Practitioner Family; Visit Provider Nurse Practitioner Family
DX: M79.672 Pain in left foot (principal)
CPT/HCPCS: 73630

== ENCOUNTER 2019-08-06 12:08 | Outpatient (RCR) | payer MEDICARE, OTHER, SELFPAY | END 2019-08-06 12:45 | disposition home or self-care (01) | LOC: PT 12:08 | PROVIDERS: Visit Provider Nurse Practitioner Family | DX: S92.415A Nondisplaced fracture of proximal phalanx of left great toe, initial encounter for closed fracture (principal) | CPT/HCPCS: 97760 ==

== ENCOUNTER → 2020-04-20 07:51 | Outpatient (CLI) | payer MEDICARE, OTHER, SELFPAY ==
[2020-04-20 09:32] LABS: Adenovirus,PCR Not Detected (NotDetected); Bordetella Pertussis Not Detected (NotDetected); Chlamydophila Pneumoniae, PCR Not Detected (NotDetected); Coronavirus 19, PCR Not Detected (NotDetected); Coronavirus 229E Not Detected (NotDetected); Coronavirus NL63 Not Detected (NotDetected); Coronavirus OC43 Not Detected (NotDetected); Coronovirus HKU1,PCR Not Detected (NotDetected); Human Metapneumovirus Not Detected (NotDetected); Influenza A, PCR Not Detected (NotDetected); Influenza AH1, 2009 Not Detected (NotDetected); Influenza AH1, PCR Not Detected (NotDetected); Influenza AH3,PCR Not Detected (NotDetected); Influenza B, PCR Not Detected (NotDetected); Mycoplasma Pneumoniae, PCR Not Detected (NotDetected); Parainfluenza 1, PCR Not Detected (NotDetected); Parainfluenza 2, PCR Not Detected (NotDetected); Parainfluenza 3, PCR Not Detected (NotDetected); Parainfluenza 4, PCR Not Detected (NotDetected); Respiratory Syncytial Virus Not Detected (NotDetected); Rhinovirus/Enterovirus Not Detected (NotDetected)
== END ==
PROVIDERS: PCP Internal Medicine Adolescent Medicine; Visit Provider Internal Medicine Adolescent Medicine
DX: Z03.818 Encounter for observation for suspected exposure to other biological agents ruled out (principal)
CPT/HCPCS: 87581; 87633; 87798; U0003

== ENCOUNTER → 2020-07-03 16:42 | Outpatient (CLI) | payer MEDICARE, OTHER, SELFPAY ==
[2020-07-05 09:21] LABS: Covid-19 Nasal PCR Sendout P&C POSITIVE
== END ==
PROVIDERS: PCP Internal Medicine Adolescent Medicine; Visit Provider Internal Medicine Adolescent Medicine
DX: Z20.828 Contact with and (suspected) exposure to other viral communicable diseases (principal); U07.1 COVID-19
CPT/HCPCS: U0004

== ENCOUNTER 2020-09-24 10:48 | Emergency (ER) | payer MEDICARE, OTHER, SELFPAY ==
[2020-09-24 10:50] VITALS: BP 149/72; PULSE 86; RESP 20; TEMP 36.8; O2SAT 98; BMI 35.4
--- NOTE | 2020-09-24 11:06 | HMH.EDUTC ---
[facility] [place] Clinical Impression: Otitis media Qualifiers: Otitis media type: unspecified Laterality: right Qualified Code(s): H66.91 - Otitis media, unspecified, right ear Disposition: Home, Self-Care Condition on Discharge: Good Instructions: Middle Ear Infections (Alternative Therapy), Middle Ear Infection, Amoxicillin Additional Instructions: Take medication as prescribed Over the counter Motrin and/or Tylenol as directed on package for pain or fever Follow up with your Family Doctor if no improvement or any worsening of symptoms Return if needed Straight to ER if any life threatening symptoms Prescriptions: Amoxicillin [Amoxicillin 500mg Cap] 500 mg PO TID #30 cap Transmission Status: Pending to [facility] #[id number] Referrals: Milton Tang MD [Primary Care Provider] - As needed Time of Disposition: 11:16 Medical Decision Making - [place] Inquiry Pt receiving controlled substance: No [place] was queried for this patient: No Vital Signs: 09/24/20 10:50 Temperature 98.3 F Temperature Source Oral Pulse Rate [Left Brachial] 86 Respiratory Rate 20 Blood Pressure [Left Arm] 149/72 H Blood Pressure Mean [Left Arm] 97 Blood Pressure Source [Left Arm] Automatic Cuff Blood Pressure Position [Left Arm] Sitting 02 Sat by Pulse Oximetry 98 Oxygen Delivery Method Room Air [facility] [place] - General Stated complaint: ear pain Time Seen by Provider: 09/24/20 11:06 Mode of Arrival: Ambulatory Source of Information: Patient Limitations: No Limitations Description of Symptoms (Recalled from Triage Doc. by RN): PATIENT C/O RIGHT EAR ACHE SINCE FRIDAY NIGHT HEENT Symptoms (Recalled from RN notes): Yes Resp Symptoms (Recalled from RN notes): No Skin Symptoms (Recalled from RN notes): No MS Symptoms (Recalled from RN notes): No Functional Status (Recalled from RN notes): WNL - History of Present Illness Provider Complaint: Patient state that she has been having pain in her right ear for several days that has continued to get worse over the last few days States that last night the pain in her ear kept her up most of the night so today she came in to get it checked - Related Data Home Medications Medication Instructions Recorded Confirmed Glimepiride 8 mg PO DAILY 08/21/17 05/02/20 aspirin 81 mg chewable tablet 81 mg PO DAILY 10/29/17 05/02/20 buspirone 5 mg tablet 5 mg PO BIDP PRN 10/29/17 05/02/20 naproxen 250 mg tablet 250 mg PO DAILY 10/29/17 05/02/20 Losartan/Hydrochlorothiazide 1 each PO DAILY 03/08/18 05/02/20 [Losartan-Hctz 50-12.5 mg Tab] Empagliflozin [Jardiance] 25 mg PO DAILY 08/18/18 05/02/20 Metformin HCl [Metformin HCl ER] 1,000 mg PO BID 08/18/18 05/02/20 Fluticasone Propionate [Flonase 2 spr NS DAILY 09/20/18 05/02/20 50mcg nasal spray 16gm] Pravastatin Sodium [Pravachol] 80 mg PO HS 09/21/18 05/02/20 Previous Rx's Medication Instructions Recorded amoxicillin 500 mg capsule 500 mg PO Q12H 10 Days #20 cap 04/10/20 Amoxicillin [Amoxicillin 500mg 500 mg PO TID #30 cap 09/24/20 Cap] Allergies Allergy/AdvReac Type Severity Reaction Status Date / Time No Known Allergies Allergy Verified 05/02/20 17:30 - Worker's Comp Is this a Worker's Comp case?: No [facility] History - Hepatitis A Screen Drug use history?: No High risk sexual behaviors?: No History of sexually transmitted infection?: No Currently employed?: No Childcare worker?: No Do you have indoor plumbing?: Yes Do you have electricity?: Yes Attestation statement:: This patient has been screened for Hepatitis A risk factors. I have reviewed the patient's past medical history: Yes Medical History: Reports:: Anxiety, Depression, Diabetes Mellitus Type 2, Hyperlipidemia, Hypertension Denies:: Cancer, Diabetes Mellitus Type 1, Internal Pacemaker, Lung Disease, MRSA, Seizures Other Medical History: Denies: Blood Transfusion Reaction Comment: anxiety Laterality Cases: Left: Breast Biopsy, Bilateral: T
[2020-09-24 11:29] VITALS: BP 149/72; PULSE 86; RESP 20; TEMP 36.8; O2SAT 98
== END 2020-09-24 11:31 | disposition home or self-care (01) ==
PROVIDERS: Emergency Provider Nurse Practitioner; PCP Internal Medicine Adolescent Medicine
DX: H66.91 Otitis media, unspecified, right ear (principal); F41.8 Other specified anxiety disorders; E11.9 Type 2 diabetes mellitus without complications; E78.5 Hyperlipidemia, unspecified; I10 Essential (primary) hypertension; Z79.899 Other long term (current) drug therapy
CPT/HCPCS: G0463; 99202

== ENCOUNTER → 2020-11-21 11:29 | Outpatient (CLI) | payer MEDICARE, OTHER, SELFPAY ==
--- NOTE | 2020-11-21 11:35 | XR_ITS ---
PROCEDURE: XR SHOULDER LT MIN 2V CLINICAL INDICATION: LT ANTERIOR SHOULDER PAIN COMPARISON: No exams were available for comparison FINDINGS: No fracture or dislocation. No lytic or blastic change. There is normal mineralization. The joint spaces are well-preserved. No significant degenerative/arthritic changes. No erosive changes evident. Other findings:None. IMPRESSION: No acute findings. Dictated by: Ty Wyman MD 11/21/2020 14:27 Ty Wyman MD in [place] 11/21/2020 14:27
== END ==
PROVIDERS: PCP Internal Medicine Adolescent Medicine; Visit Provider Internal Medicine Adolescent Medicine
DX: M25.512 Pain in left shoulder (principal)
CPT/HCPCS: 73030

== ENCOUNTER 2020-12-26 08:00 | Outpatient (RCR) | payer MEDICARE, OTHER, SELFPAY ==
--- NOTE | 2020-12-06 08:50 | HMH.OTOPEV ---
OT Inpatient Evaluation Rehab OT Outpatient Eval Start: 12/06/20 08:40 Freq: Status: Active Protocol: Document 12/06/20 08:40 RMARSHALL (Rec: 12/06/20 08:50 RMARSHALL [id number]) Electronically Signed By Masha Seals OT 12/06/20 08:40 Outpatient Therapy Subjective History Subjective History Pt is a 65 year old female who reports to therapy for initial evaluation to left shoulder. Pt reports ~1 month ago she started having aching in left shoulder and down left arm. Pt does not recall a specific injury causing pain . 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 Pt has had an x-ray with no significant findings. Pt demonstrates with decreased AROM and strength. Pt will continue to be seen twice a week in order to address all deficits. Chief Complaint Pain,Stiff,Weakness Symptom Type Ache,Throb,Dull Symptoms Relieved By Rest/Positioning Symptoms Aggravated By Physical Activity,Lifting Prior Functional Limitations None Current Functional Limitations Reaching,Lifting,Housework, Dressing,Sleeping,Recreation Activity Symptom Description Intermittent,Activity Dependent Level of pain today (0-10) 0 Pain scale - at its best (0-10) 0 Pain scale - at its worst (0-10) 8 Shoulder/Elbow Eval Shoulder Objective Measurements Shoulder ROM Left Shoulder Abduction Active Range of 90 degrees Motion (degrees) Shoulder Flexion Active Range of Motion 120 degrees (degrees) Query Text: Shoulder External Rotation Active Range 80 degrees of Motion (degrees) Shoulder Internal Rotation Active Range 65 degrees of Motion (degrees) Shoulder MMT Shoulder Abduction Strength Grade 3- Fair- Shoulder Extension Strength Grade 4- Good- Shoulder Flexion Strength Grade 3+ Fair+ Shoulder External Rotation Strength 3- Fair- Grade Shoulder Internal Rotation Strength 3- Fair- Grade Shoulder Strength Patient Testing Sitting Position Shoulder Special Tests impingement sign present shoulder exam left standard
== END 2020-12-26 08:05 | disposition home or self-care (01) ==
LOC: OT 08:00
PROVIDERS: PCP Internal Medicine Adolescent Medicine; Visit Provider Internal Medicine Adolescent Medicine
DX: M25.512 Pain in left shoulder (principal)
CPT/HCPCS: 97014; 97110; 97140; 97166; 97530; G0283

== ENCOUNTER → 2021-08-02 14:07 | Outpatient (CLI) | payer MEDICARE, OTHER, SELFPAY | PROVIDERS: Visit Provider Nurse Practitioner | DX: Z20.822 Contact with and (suspected) exposure to COVID-19 (principal) | CPT/HCPCS: C9803; U0003; U0005 ==

== ENCOUNTER 2022-04-04 10:09 | Emergency (ER) | payer MEDICARE, OTHER, SELFPAY ==
[2022-04-04 10:41] VITALS: BP 152/77; PULSE 91; RESP 18; TEMP 37.2; O2SAT 95; BMI 37.2
[2022-04-04 10:52] LABS: UTC Strep Screen (Rapid) Negative (Negative)
--- NOTE | 2022-04-04 10:54 | EXP.UTC ---
Discharge Plan Prescriptions Prescriptions: No Action naproxen 250 mg tablet 250 mg PO DAILY buspirone 5 mg tablet 5 mg PO BIDP PRN (Reason: Anxiety) aspirin 81 mg tablet,chewable 81 mg PO DAILY amoxicillin 500 mg capsule 500 mg PO Q12H 10 Days Qty: 20 0RF glimepiride 4 tablet 8 mg PO DAILY Label Comments: metformin 500 MG tablet extended release 24 hr 1,000 mg PO BID empagliflozin 25 tablet 25 mg PO DAILY fluticasone propionate 120 SPR/BOT bottle 2 spr NS DAILY pravastatin 80 MG tablet 80 mg PO HS losartan-hydrochlorothiazide 1 EACH tablet 1 each PO DAILY Rx Instructions: 50/12.5MG amoxicillin 500 MG capsule 500 mg PO TID Qty: 30 0RF Referrals Follow up/Referrals: Milton Tang MD [Primary Care Provider] - See instructions Discharge ED Provider: Imtiaz Vasquez [facility] [place] General Stated complaint: sore throat,cough, runny nose Mode of Arrival: Ambulatory Source of Information: Patient Time Seen by Provider: 04/04/22 10:54 Description of Symptoms (Recalled from Triage Doc. by RN): SORE THROATA, COUGH AND SNEEZING. LEFT EAR PAIN HEENT Symptoms (Recalled from RN notes): Yes Resp Symptoms (Recalled from RN notes): Yes Skin Symptoms (Recalled from RN notes): No MS Symptoms (Recalled from RN notes): No Functional Status (Recalled from RN notes): NA History of Present Illness Provider Complaint: She c/o sore throat, chills, body aches and sinus congestion for the past 2 days. Related Data Home Medications Medication Instructions Recorded Confirmed glimepiride 4 mg tablet 8 mg PO DAILY Diabetes 08/21/17 05/02/20 aspirin 81 mg chewable tablet 81 mg PO DAILY Heart disease 10/29/17 05/02/20 buspirone 5 mg tablet 5 mg PO BIDP PRN Anxiety 10/29/17 05/02/20 naproxen 250 mg tablet 250 mg PO DAILY Pain 10/29/17 05/02/20 losartan 50 mg-hydrochlorothiazide 1 each PO DAILY blood pressure 03/08/18 05/02/20 12.5 mg tablet empagliflozin 25 mg tablet 25 mg PO DAILY Diabetes 08/18/18 05/02/20 metformin 500 mg tablet,extended 1,000 mg PO BID DIABETES 08/18/18 05/02/20 release 24 hr fluticasone propionate 50 2 spr NS DAILY Allergy symptoms 09/20/18 05/02/20 mcg/actuation nasal spray,suspension pravastatin 80 mg tablet 80 mg PO HS Cholesterol 09/21/18 05/02/20 Previous Rx's Medication Instructions Recorded amoxicillin 500 mg capsule 500 mg PO Q12H pharyngitis 10 days 04/10/20 #20 caps amoxicillin 500 mg capsule 500 mg PO TID #30 caps 09/24/20 Allergies Allergy/AdvReac Type Severity Reaction Status Date / Time No Known Allergies Allergy Verified 05/02/20 17:30 Worker's Comp Is this a Worker's Comp case?: No PFSH PFSH Social History Smoking Status: Never smoker alcohol intake: never substance use type: denies use current occupational status: other Travel in the last 8 weeks: None household members: spouse housing: house caffeine: Yes ROS Obtained: Yes All systems reviewed & no additional complaints except as documented Constitutional Constitutional: Reports chills and Reports fever(s) Eyes Eyes: Denies eye discharge ENT Ears, Nose, Mouth, and Throat: Reports as per HPI Cardiovascular Cardiovascular: Denies chest pain Respiratory Respiratory: Denies chest congestion and Reports cough Gastrointestinal Gastrointestingal: Reports nausea; Denies abdominal pain, constipation, cramping, diarrhea or vomiting Musculoskeletal Musculoskeletal: Denies arthralgias Integumentary/Breasts Skin/Breast: Denies rash Neurologic Neurologic: Denies paresthesias Physical Exam General General appearance: alert and in no apparent distress Head Head exam: atraumatic, normocephalic and normal inspection Eye Eye exam: Present normal appearance, PERRL and EOMI ENT ENT exam: Present mucous membranes moist and normal external ear exam Expanded ENT Exam TM/Canal e
[2022-04-04 11:11] VITALS: BP 152/77; PULSE 91; RESP 18; TEMP 37.2; O2SAT 95
--- NOTE | 2022-04-04 11:50 | EXP.UTC ---
Discharge Plan Disposition Patient Disposition: Home, Self-Care Condition: Good Prescriptions Prescriptions: New benzonatate [benzonatate] 100 mg capsule 100 mg PO TIDP PRN (Reason: Cough) Qty: 30 0RF guaifenesin [Mucinex] 600 mg tablet extended release 12hr 600 - 1,200 mg PO BIDP PRN (Reason: Congestion) Qty: 30 0RF azithromycin [Zithromax] 250 mg tablet 250 mg PO UD DOSE PK Qty: 6 0RF Rx Instructions: Take two (2) tablets today, then one (1) tablet days #2 thru #5 No Action naproxen 250 mg tablet 250 mg PO DAILY buspirone 5 mg tablet 5 mg PO BIDP PRN (Reason: Anxiety) aspirin 81 mg tablet,chewable 81 mg PO DAILY amoxicillin 500 mg capsule 500 mg PO Q12H 10 Days Qty: 20 0RF glimepiride 4 tablet 8 mg PO DAILY Label Comments: metformin 500 MG tablet extended release 24 hr 1,000 mg PO BID empagliflozin 25 tablet 25 mg PO DAILY fluticasone propionate 120 SPR/BOT bottle 2 spr NS DAILY pravastatin 80 MG tablet 80 mg PO HS losartan-hydrochlorothiazide 1 EACH tablet 1 each PO DAILY Rx Instructions: 50/12.5MG amoxicillin 500 MG capsule 500 mg PO TID Qty: 30 0RF Referrals Follow up/Referrals: Milton Tang MD [Primary Care Provider] - See instructions Clinical Impressions Clinical Impression: Sinusitis Instructions Patient Instructions: Sinusitis, DI for Sinusitis Discharge ED Provider: Imtiaz Vasquez [facility] General Stated complaint: sore throat,cough, runny nose Mode of Arrival: Ambulatory Source of Information: Patient Time Seen by Provider: 04/04/22 10:54 Description of Symptoms (Recalled from Triage Doc. by RN): SORE THROATA, COUGH AND SNEEZING. LEFT EAR PAIN HEENT Symptoms (Recalled from RN notes): Yes Resp Symptoms (Recalled from RN notes): Yes Skin Symptoms (Recalled from RN notes): No MS Symptoms (Recalled from RN notes): No Functional Status (Recalled from RN notes): NA History of Present Illness Provider Complaint: She states that for the past 2 days she has had sinus congestion, scratchy sore throat and ear pressure. She states that she has a sinus infection. She refuses a covid-19 test. Related Data Home Medications Medication Instructions Recorded Confirmed glimepiride 4 mg tablet 8 mg PO DAILY Diabetes 08/21/17 05/02/20 aspirin 81 mg chewable tablet 81 mg PO DAILY Heart disease 10/29/17 05/02/20 buspirone 5 mg tablet 5 mg PO BIDP PRN Anxiety 10/29/17 05/02/20 naproxen 250 mg tablet 250 mg PO DAILY Pain 10/29/17 05/02/20 losartan 50 mg-hydrochlorothiazide 1 each PO DAILY blood pressure 03/08/18 05/02/20 12.5 mg tablet empagliflozin 25 mg tablet 25 mg PO DAILY Diabetes 08/18/18 05/02/20 metformin 500 mg tablet,extended 1,000 mg PO BID DIABETES 08/18/18 05/02/20 release 24 hr fluticasone propionate 50 2 spr NS DAILY Allergy symptoms 09/20/18 05/02/20 mcg/actuation nasal spray,suspension pravastatin 80 mg tablet 80 mg PO HS Cholesterol 09/21/18 05/02/20 Previous Rx's Medication Instructions Recorded amoxicillin 500 mg capsule 500 mg PO Q12H pharyngitis 10 days 04/10/20 #20 caps amoxicillin 500 mg capsule 500 mg PO TID #30 caps 09/24/20 azithromycin 250 mg tablet 250 mg PO UD DOSE PK #6 tabs 04/04/22 (Zithromax) benzonatate 100 mg capsule 100 mg PO TIDP PRN Cough #30 caps 04/04/22 guaifenesin 600 mg tablet, 600 - 1,200 mg PO BIDP PRN 04/04/22 extended release 12 hr (Mucinex) Congestion #30 tabs Allergies Allergy/AdvReac Type Severity Reaction Status Date / Time No Known Allergies Allergy Verified 05/02/20 17:30 Worker's Comp Is this a Worker's Comp case?: No PFSH PFSH Social History Smoking Status: Never smoker alcohol intake: never substance use type: denies use current occupational status: other Travel in the last 8 weeks: None household members: spouse housing: [facility]
== END 2022-04-04 11:14 | disposition home or self-care (01) ==
PROVIDERS: Emergency Provider Nurse Practitioner Family; PCP Internal Medicine Adolescent Medicine
DX: J32.9 Chronic sinusitis, unspecified (principal)
CPT/HCPCS: 87880; 99212; G0463

== ENCOUNTER 2022-05-20 08:15 | Emergency (ER) | payer MEDICARE, OTHER, SELFPAY ==
[2022-05-20 09:09] VITALS: BP 151/67; PULSE 88; RESP 15; TEMP 37.1; O2SAT 97; BMI 38.0
[2022-05-20 09:13] LABS: UTC Strep Screen (Rapid) Negative (Negative)
--- NOTE | 2022-05-20 09:17 | EXP.UTC ---
Discharge Plan Disposition Patient Disposition: Home, Self-Care Condition: Good Prescriptions Prescriptions: New amoxicillin 500 mg capsule 500 mg PO TID 10 Days Qty: 30 0RF benzonatate 100 mg capsule 100 mg PO TID PRN (Reason: cough) Qty: 30 0RF No Action naproxen 250 mg tablet 250 mg PO DAILY buspirone 5 mg tablet 5 mg PO BIDP PRN (Reason: Anxiety) aspirin 81 mg tablet,chewable 81 mg PO DAILY amoxicillin 500 mg capsule 500 mg PO Q12H 10 Days Qty: 20 0RF glimepiride 4 tablet 8 mg PO DAILY Label Comments: metformin 500 MG tablet extended release 24 hr 1,000 mg PO BID empagliflozin 25 tablet 25 mg PO DAILY fluticasone propionate 120 SPR/BOT bottle 2 spr NS DAILY pravastatin 80 MG tablet 80 mg PO HS benzonatate [benzonatate] 100 mg capsule 100 mg PO TIDP PRN (Reason: Cough) Qty: 30 0RF guaifenesin [Mucinex] 600 mg tablet extended release 12hr 600 - 1,200 mg PO BIDP PRN (Reason: Congestion) Qty: 30 0RF azithromycin [Zithromax] 250 mg tablet 250 mg PO UD DOSE PK Qty: 6 0RF Rx Instructions: Take two (2) tablets today, then one (1) tablet days #2 thru #5 losartan-hydrochlorothiazide 1 EACH tablet 1 each PO DAILY Rx Instructions: 50/12.5MG amoxicillin 500 MG capsule 500 mg PO TID Qty: 30 0RF Referrals Follow up/Referrals: Milton Tang MD [Primary Care Provider] - See instructions Activity Restrictions/Add. Instructions Additional Instructions/Restrictions: *Monitor Temp, Over the counter Motrin or Tylenol as directed/as needed Tylenol every 4 hours and Motrin every 6 hours (as long as your family doctor has told you that you can take it) for fever or pain. and straight to ER if unable to lower temp less than 101.0 after medication given *Warm salt water gargles may help to soothe the throat *Throat Lozenges? *Warm fluids like tea with honey may help to soothe the throat? *Sleep elevated *Humidifier/Vaporizer Take medication as prescribed Your throat swab was sent for culture. Those results are typically sent to your primary care. Be sure to follow up in 2-3 days with your family doctor/primary care physician if no improvement so they can review those result and treat if necessary. If you don?t have a primary care doctor, I recommend you get one but in the mean time, you will have to return to a walk in clinic Follow up IMMEDIATELY for new or worsening symptoms or no Noticeable improvement over the next 48-72 hours. 911 for difficulty breathing or swallowing Clinical Impressions Clinical Impression: Otitis media Instructions Patient Instructions: Middle Ear Infection, Sore Throat Discharge ED Provider: Lindsey Adams [facility] [place] HPI General Stated complaint: Lt ear pain, sore throat, cough Mode of Arrival: Ambulatory Source of Information: Patient Limitations: No Limitations Time Seen by Provider: 05/20/22 09:17 Description of Symptoms (Recalled from Triage Doc. by RN): pt comes in with c/o ear ache, sore throat, cough, head congestion that began HEENT Symptoms (Recalled from RN notes): Yes Resp Symptoms (Recalled from RN notes): Yes Skin Symptoms (Recalled from RN notes): No MS Symptoms (Recalled from RN notes): No Functional Status (Recalled from RN notes): n/a History of Present Illness Provider Complaint: Patient states that for the last few days she has been having sore throat, pain in her left ear and cough with head congestion States that today her ear was throbbing so she came in to get it checked out Related Data Home Medications Medication Instructions Recorded Confirmed glimepiride 4 mg tablet 8 mg PO DAILY Diabetes 08/21/17 05/20/22 aspirin 81 mg chewable tablet 81 mg PO DAILY Heart disease 10/29/17 05/20/22 buspirone 5 mg tablet 5 mg PO BIDP PRN Anxiety 10/29/17 05/20/22 naproxen 250 mg tablet 250 mg PO DAILY Pain 10/29/17 05/20/22 los
[2022-05-20 09:38] VITALS: BP 151/67; PULSE 88; RESP 15; TEMP 37.1
== END 2022-05-20 09:44 | disposition home or self-care (01) ==
PROVIDERS: Emergency Provider Nurse Practitioner; PCP Internal Medicine Adolescent Medicine
DX: J02.9 Acute pharyngitis, unspecified (principal); H92.02 Otalgia, left ear; R05.9 Cough, unspecified; F41.9 Anxiety disorder, unspecified; Z79.1 Long term (current) use of non-steroidal anti-inflammatories (NSAID); Z79.51 Long term (current) use of inhaled steroids; Z79.82 Long term (current) use of aspirin; Z79.84 Long term (current) use of oral hypoglycemic drugs; Z79.899 Other long term (current) drug therapy
CPT/HCPCS: 87880; 99213; G0463

== ENCOUNTER 2022-08-04 09:47 | Emergency (ER) | payer MEDICARE, OTHER, SELFPAY ==
--- NOTE | 2022-08-04 09:50 | EXP.UTC ---
Discharge Plan Disposition Patient Disposition: Home, Self-Care Condition: Good Prescriptions Prescriptions: New phenazopyridine 200 mg Tablet 200 mg PO TID Qty: 6 0RF sulfamethoxazole-trimethoprim [Bactrim DS] 800-160 mg Tablet 1 tab PO BID Qty: 14 0RF No Action naproxen 250 mg tablet 250 mg PO DAILY buspirone 5 mg tablet 5 mg PO BIDP PRN (Reason: Anxiety) aspirin 81 mg tablet,chewable 81 mg PO DAILY glimepiride 4 tablet 8 mg PO DAILY Label Comments: metformin 500 MG tablet extended release 24 hr 1,000 mg PO BID empagliflozin 25 tablet 25 mg PO DAILY fluticasone propionate 120 SPR/BOT bottle 2 spr NS DAILY guaifenesin [Mucinex] 600 mg tablet extended release 12hr 600 - 1,200 mg PO BIDP PRN (Reason: Congestion) Qty: 30 0RF losartan-hydrochlorothiazide 1 EACH tablet 1 each PO DAILY Rx Instructions: 50/12.5MG Referrals Follow up/Referrals: Milton Tang MD [Primary Care Provider] - See instructions Activity Restrictions/Add. Instructions Additional Instructions/Restrictions: Drink plenty of fluids. Take tylenol or ibuprofen for pain or fever. Take the medications as directed. Follow up with your regular doctor. GO TO THE ER FOR ANY WORSENING SYMPTOMS The pyridium will make your urine turn orange, this is an expected side effect. It will stain your clothes if it comes into contact with them. Don't take the pyridium and otc AZO. These are the same medication. We will culture the urine. That will tell what bacteria is causing your infection and which antibiotics will treat it best. Sometimes the first antibiotic we prescribe turns out to not work against different bacteria. So, make sure you follow up within 3 days if you are not getting better. Clinical Impressions Clinical Impression: UTI (urinary tract infection) Instructions Patient Instructions: Urinary Tract Infection, DI for Urinary Tract Infection (UTI), Phenazopyridine Discharge ED Provider: Imtiaz Vasquez [facility] [place] General Stated complaint: burn frequency when urinating Time Seen by Provider: 08/04/22 09:50 History of Present Illness Provider Complaint: She c/o dysuria, low back pain and urinary frequency for the past 2 days. Related Data Home Medications Medication Instructions Recorded Confirmed glimepiride 4 mg tablet 8 mg PO DAILY Diabetes 08/21/17 05/20/22 aspirin 81 mg chewable tablet 81 mg PO DAILY Heart disease 10/29/17 08/04/22 buspirone 5 mg tablet 5 mg PO BIDP PRN Anxiety 10/29/17 08/04/22 naproxen 250 mg tablet 250 mg PO DAILY Pain 10/29/17 08/04/22 losartan 50 mg-hydrochlorothiazide 1 each PO DAILY blood pressure 03/08/18 08/04/22 12.5 mg tablet empagliflozin 25 mg tablet 25 mg PO DAILY Diabetes 08/18/18 08/04/22 metformin 500 mg tablet,extended 1,000 mg PO BID DIABETES 08/18/18 08/04/22 release 24 hr fluticasone propionate 50 2 spr NS DAILY Allergy symptoms 09/20/18 05/20/22 mcg/actuation nasal spray,suspension Previous Rx's Medication Instructions Recorded guaifenesin 600 mg tablet, 600 - 1,200 mg PO BIDP PRN 04/04/22 extended release 12 hr (Mucinex) Congestion #30 tabs phenazopyridine 200 mg tablet 200 mg PO TID #6 tabs 08/04/22 sulfamethoxazole 800 1 tab PO BID #14 tabs 08/04/22 mg-trimethoprim 160 mg tablet (Bactrim DS) Allergies Allergy/AdvReac Type Severity Reaction Status Date / Time No Known Allergies Allergy Verified 08/04/22 10:10 [facility] Disclaimer: The information contained in this section may have been updated after the patient was seen, as this information can be updated by other users. Social History Smoking Status: Never smoker alcohol intake: never substance use type: denies use current occupational status: other Travel in the last 8 weeks: None household members: spouse housing: house caffeine:
[2022-08-04 10:00] VITALS: BP 145/77; PULSE 98; RESP 20; TEMP 36.8; O2SAT 94; BMI 37.2
[2022-08-04 10:10] LABS: Color,Urine Orange (Yellow)
[2022-08-04 10:11] LABS: Apearance,Urine Cloudy (Clear); PH,Urine 5.5 (5.0-8.5); Protein,Urine 2+ (Negative); Specific Gravity, Urine 1.015 (1.005-1.030)
[2022-08-04 10:12] LABS: Bilirubin,Urine Negative (Negative); Blood, Urine 3+ (Negative); Glucose,Urine (UA) 3+ (Negative); Ketones,Urine TRACE (Negative); UTC Leukocyte Esterase,Urine 1+ (Negative); UTC Nitrate,Urine Positive (Negative); Urobilinogen,Urine 0.2 EU/dl (0.2)
[2022-08-04 10:41] VITALS: BP 145/77; PULSE 98; RESP 20; TEMP 36.8; O2SAT 94
== END 2022-08-04 10:41 | disposition home or self-care (01) ==
PROVIDERS: Emergency Provider Nurse Practitioner Family; PCP Internal Medicine Adolescent Medicine
DX: N39.0 Urinary tract infection, site not specified (principal)
CPT/HCPCS: 81003; 87086; 87088; 87186; 99212; 99213; G0463

== ENCOUNTER 2022-09-04 08:03 | Emergency (ER) | payer MEDICARE, OTHER, SELFPAY ==
[2022-09-04 08:15] VITALS: BP 151/79; PULSE 93; RESP 20; TEMP 37.1; O2SAT 93; BMI 36.1
--- NOTE | 2022-09-04 08:17 | EXP.UTC ---
Discharge Plan Disposition Patient Disposition: Home, Self-Care Condition: Good Prescriptions Prescriptions: New azithromycin [Zithromax] 250 mg tablet 250 mg PO UD DOSE PK Qty: 6 0RF Rx Instructions: Take two (2) tablets today, then one (1) tablet days #2 thru #5 benzonatate [benzonatate] 100 mg capsule 100 mg PO TIDP PRN (Reason: Cough) Qty: 30 0RF methylprednisolone 4 mg Tablets,Dose Pack 4 mg PO DIRECTED Qty: 21 0RF guaifenesin [Mucinex] 600 mg tablet extended release 12hr 600 - 1,200 mg PO BIDP PRN (Reason: Congestion) Qty: 30 0RF No Action naproxen 250 mg tablet 250 mg PO DAILY buspirone 5 mg tablet 5 mg PO BIDP PRN (Reason: Anxiety) aspirin 81 mg tablet,chewable 81 mg PO DAILY glimepiride 4 tablet 8 mg PO DAILY Label Comments: metformin 500 MG tablet extended release 24 hr 1,000 mg PO BID empagliflozin 25 tablet 25 mg PO DAILY fluticasone propionate 120 SPR/BOT bottle 2 spr NS DAILY guaifenesin [Mucinex] 600 mg tablet extended release 12hr 600 - 1,200 mg PO BIDP PRN (Reason: Congestion) Qty: 30 0RF phenazopyridine 200 mg Tablet 200 mg PO TID Qty: 6 0RF sulfamethoxazole-trimethoprim [Bactrim DS] 800-160 mg Tablet 1 tab PO BID Qty: 14 0RF losartan-hydrochlorothiazide 1 EACH tablet 1 each PO DAILY Rx Instructions: 50/12.5MG Referrals Follow up/Referrals: Milton Tang MD [Primary Care Provider] - See instructions Activity Restrictions/Add. Instructions Additional Instructions/Restrictions: Drink plenty of fluids. Take tylenol or ibuprofen for pain or fever. Take the medications as directed. Follow up with your regular doctor. GO TO THE ER FOR ANY WORSENING SYMPTOMS Clinical Impressions Clinical Impression: Sinusitis, Bronchitis Instructions Patient Instructions: DI for Sinusitis, DI for Acute Bronchitis [place]charge ED Provider: Imtiaz Vasquez [facility] [place] General Stated complaint: congestion, sore throat, ear pain Time Seen by Provider: 09/04/22 08:17 History of Present Illness Provider Complaint: She states that for the past 4 days she has had sinus congestion, chest congestion and a productive cough with yellowish sputum. Related Data Home Medications Medication Instructions Recorded Confirmed glimepiride 4 mg tablet 8 mg PO DAILY Diabetes 08/21/17 05/20/22 aspirin 81 mg chewable tablet 81 mg PO DAILY Heart disease 10/29/17 08/04/22 buspirone 5 mg tablet 5 mg PO BIDP PRN Anxiety 10/29/17 08/04/22 naproxen 250 mg tablet 250 mg PO DAILY Pain 10/29/17 08/04/22 losartan 50 mg-hydrochlorothiazide 1 each PO DAILY blood pressure 03/08/18 08/04/22 12.5 mg tablet empagliflozin 25 mg tablet 25 mg PO DAILY Diabetes 08/18/18 08/04/22 metformin 500 mg tablet,extended 1,000 mg PO BID DIABETES 08/18/18 08/04/22 release 24 hr fluticasone propionate 50 2 spr NS DAILY Allergy symptoms 09/20/18 05/20/22 mcg/actuation nasal spray,suspension Previous Rx's Medication Instructions Recorded guaifenesin 600 mg tablet, 600 - 1,200 mg PO BIDP PRN 04/04/22 extended release 12 hr (Mucinex) Congestion #30 tabs phenazopyridine 200 mg tablet 200 mg PO TID #6 tabs 08/04/22 sulfamethoxazole 800 1 tab PO BID #14 tabs 08/04/22 mg-trimethoprim 160 mg tablet (Bactrim DS) azithromycin 250 mg tablet 250 mg PO UD DOSE PK #6 tabs 09/04/22 (Zithromax) benzonatate 100 mg capsule 100 mg PO TIDP PRN Cough #30 caps 09/04/22 guaifenesin 600 mg tablet, 600 - 1,200 mg PO BIDP PRN 09/04/22 extended release 12 hr (Mucinex) Congestion #30 tabs methylprednisolone 4 mg tablets in 4 mg PO DIRECTED #21 tabs 09/04/22 a dose pack Allergies Allergy/AdvReac Type Severity Reaction Status Date / Time No Known Allergies Allergy Verified 09/04/22 08:31 [facility] Disclaimer: The information contained in this section may have been updated after the patient was seen, as this i
[2022-09-04 09:05] VITALS: BP 151/79; PULSE 93; RESP 20; TEMP 37.1; O2SAT 93
== END 2022-09-04 09:05 | disposition home or self-care (01) ==
PROVIDERS: Emergency Provider Nurse Practitioner Family; PCP Internal Medicine Adolescent Medicine
DX: J32.9 Chronic sinusitis, unspecified (principal); J40 Bronchitis, not specified as acute or chronic
CPT/HCPCS: 99212; 99214; G0463

== ENCOUNTER → 2022-10-22 12:59 | Outpatient (POV) | payer MEDICARE, OTHER, SELFPAY | PROVIDERS: Visit Provider Dermatology | DX: Z00.00 Encounter for general adult medical examination without abnormal findings (principal) ==

== ENCOUNTER → 2023-02-06 08:42 | Outpatient (CLI) | payer MEDICARE, OTHER, SELFPAY ==
[2023-02-06 10:04] LABS: Alanine Aminotransferase 28 U/L (12-78); Albumin Level 4.3 g/dl (3.5-5.0); Albumin/Globulin Ratio 1.7 (1.1-1.8); Alkaline Phosphatase 58 U/L (38-126); Anion Gap 10.1 mEq/L (5-15); Aspartate Amino Transferase 27 U/L (14-36); Bilirubin,Total 0.4 mg/dl (0.2-1.3); Blood Urea Nitrogen 16 mg/dl (7-17); Calcium 10.5 mg/dl (8.4-10.2); Carbon Dioxide 30 mmol/L (22.0-30.0); Chloride 105 mmol/L (98-107); Chol/HDL Ratio 3.3 (1-3.5); Cholesterol 127 mg/dl (140-200); Estimated Glomerular Filt Rate 83 ml/min (>60); GFR (African American) 100 ML/MIN (>60); Globulin 2.6 g/dL (1.3-3.2); Glucose 161 mg/dl (74-100); HDL Cholesterol 38 mg/dl (40-60); Potassium 4.1 mmoL/L (3.5-5.1); Sodium 141 mmol/L (136-145); Total Protein,Serum 6.9 g/dl (6.3-8.2); Triglycerides 105 mg/dl (30-150); VLDL Cholesterol 21 mg/dL (0-40)
[2023-02-06 10:15] LABS: Direct LDL Cholesterol 71.49 mg/dL (100-129)
== END ==
PROVIDERS: PCP Internal Medicine Adolescent Medicine; Visit Provider Physician Assistant
DX: E78.5 Hyperlipidemia, unspecified (principal); I10 Essential (primary) hypertension
CPT/HCPCS: 36415; 80053; 80061

== ENCOUNTER → 2023-02-07 11:39 | Outpatient (CLI) | payer MEDICARE, OTHER, SELFPAY ==
--- NOTE | 2023-02-07 11:44 | XR_ITS ---
FINAL REPORT CLINICAL HISTORY: EDEMA OF RIGHT FOOT pain on lateral side of foot and heel pain COMPARISON: None FINDINGS: RIGHT FOOT: Three views of the right foot were obtained. There is no acute fracture or dislocation. There is mild degenerative change. Calcaneal spurs are noted. There is no soft tissue abnormality. IMPRESSION: No acute bony abnormality. Reviewed, Interpreted and Dictated by Vladislav Botello III, MD Transcribed by Janeth Alvarado Authenticated and [facility]
--- NOTE | 2023-02-07 11:45 | XR_ITS ---
FINAL REPORT CLINICAL HISTORY: EDEMA OF RIGHT ANKLE heel pain COMPARISON: None FINDINGS: RIGHT ANKLE: Three views of the right ankle were obtained. There is no acute fracture or dislocation. The joint spaces and mortise are intact. Calcaneal spurs are noted. There is soft tissue swelling, greatest laterally. IMPRESSION: Soft tissue swelling without acute bony abnormality. Reviewed, Interpreted and Dictated by Vladislav Botello III, MD Transcribed by Janeth Alvarado Authenticated and [facility]
== END ==
PROVIDERS: PCP Internal Medicine Adolescent Medicine; Visit Provider Physician Assistant
DX: M25.571 Pain in right ankle and joints of right foot (principal); M25.471 Effusion, right ankle; M79.671 Pain in right foot
CPT/HCPCS: 73610; 73630

== ENCOUNTER → 2023-03-07 08:31 | Outpatient (CLI) | payer MEDICARE, OTHER, SELFPAY ==
--- NOTE | 2023-03-07 08:35 | CA_ITS ---
APPROVED REPORT EXAM: Comprehensive 2D, Doppler, and color-flow Echocardiogram Clothes Ironer: MINNIE Styles, RVS Ht: 5 ft 8 in Wt: 245lbs BSA: 2.23 BP: 120/75 mmHg Indications: Soa, HTN, HLD, DM, Edema Echo Enhancing Agent Comments: Poor acoustics due to patient factors. 2D Dimensions Aortic Root 3.09 cm LA Volume 31.30 mL Left Atrium 2.71 cm LA Volume Index 13.70 mL/m2 (M/F) 16-34 LVOT 2.15 cm (M/F) 1.5-2.5 M-Mode Dimensions RVDd 1.74 cm (0.9-2.6) LA Diam 3.40 cm (1.9-4.0) LVDd 5.66 cm (3.5-5.7) Ao Diam 3.27 cm (2.0-3.7) LVDs 4.17 cm (3.5-5.7) IVSd 1.28 cm (0.6-1.1) PWd 1.03 cm (0.6-1.1) EF (Teich) 50.90% EPSs 0.73 cm FS 26.30% EDV (Teich) 157.50 mL TAPSE 2.50 (<1.7) ESV (Teich) 77.30 mL LV Diastology E Decel Time 193.00 (160-240 msec) E/A Ratio 1.12 MED E' 5.20 (< 7 cm/sec) MED A' 10.20 cm/s E'/MED E' Ratio 18.75 (>14) LAT E' 8.10 (<10 cm/sec) LAT A' 12.60 cm/s E/LAT E' Ratio 12.04 (>14) Aortic Valve LVOT Max 100.00 (70-110 cm/s) LVOT VTI 22.85 cm AoV Peak Tor. 149.00 (50-130 cm/s) AO Peak GR. 8.90 mmHg AO Mean GR. 4.40 (<5 mmHg) AO VTI 30.55 (18-25 cm) AMY (VTI) 2.72 (2.5-4.5 cm2) Mitral Valve MV A Velocity 87.00 (40-130 cm/s) E/A Ratio 1.12 MV Decel. Time 193.00 (160-240 ms) Pulmonary Valve PV Peak Velocity 89.00 (50-150 cm/s) Left Ventricle The left ventricle is normal size. The left ventricular systolic function is normal. The left ventricular ejection fraction is within the normal range. There is normal left ventricular wall thickness. There is normal LV segmental wall motion. The left ventricular diastolic function is indeterminate. LVEF is 65%. Right Ventricle The right ventricle is normal size. The right ventricular systolic function is normal. Atria The left atrium size is normal. The right atrium size is normal. There is no Doppler evidence of interatrial shunt. Aortic Valve The aortic valve opens well. There is no aortic valvular stenosis. No aortic regurgitation is present. Mitral Valve The mitral valve is normal in structure. No evidence of mitral valve stenosis. Trace mitral valve regurgitation noted. Tricuspid Valve The tricuspid valve leaflets are thin and pliable. Trace tricuspid regurgitation. RVSP is normal. Pulmonic Valve The pulmonary valve is normal in structure. Trace pulmonic regurgitation. Great Vessels The aortic root is normal in size. The ascending aorta is normal in size. IVC is normal in size and collapses >50% with inspiration. Pericardium There is no pericardial effusion. Other Information Study Quality: Adequate Conclusion Normal biventricular systolic function. No significant valvular disease. Electronically signed by : Belkis Alfredo, 03/09/2023 23:47:40
== END ==
PROVIDERS: PCP Internal Medicine Adolescent Medicine; Visit Provider Physician Assistant
DX: R06.02 Shortness of breath (principal); R60.0 Localized edema; I10 Essential (primary) hypertension; E78.5 Hyperlipidemia, unspecified
CPT/HCPCS: 93306

== ENCOUNTER 2023-12-03 10:43 | Emergency (ER) | payer MEDICARE, OTHER, SELFPAY ==
[2023-12-03 11:10] VITALS: BP 149/67; PULSE 94; RESP 18; TEMP 36.8; O2SAT 95; BMI 37.0
[2023-12-03 11:16] LABS: UTC Strep Screen (Rapid) Negative (Negative)
--- NOTE | 2023-12-03 11:38 | EXP.UTC ---
Discharge Plan Disposition Patient Disposition: Home, Self-Care Condition: Good Prescriptions Prescriptions: New amoxicillin 500 mg capsule 500 mg PO TID 7 Days Qty: 21 0RF benzonatate 100 mg capsule 100 mg PO TID PRN (Reason: cough) Qty: 30 0RF No Action aspirin 81 mg tablet,chewable 81 mg PO DAILY metformin 500 MG tablet extended release 24 hr 1,000 mg PO BID empagliflozin 25 tablet 25 mg PO DAILY losartan 50 mg tablet 50 mg PO DAILY buspirone 5 mg tablet 5 mg PO DAILY insulin lispro protamin-lispro [Humalog Mix 75-25 KwikPen] 100 unit/mL (75-25) insulin pen 30 unit SQ BID rosuvastatin 40 mg tablet 40 mg PO DAILY biotin 500 mcg Capsule 2,500 mcg PO DAILY Centrum Silver Tablet 1 tab PO DAILY omega 3-axw-wfq-fish oil [Fish Oil] 1,000 mg (120 mg-180 mg) Capsule 1 cap PO DAILY Referrals Follow up/Referrals: Milton Tang MD [Primary Care Provider] - See instructions Activity Restrictions/Add. Instructions Additional Instructions/Restrictions: Take medication as prescribed Follow up with your Family Doctor if no improvement or any worsening of symptoms Return if needed straight to ER if any life threatening symptoms Clinical Impressions Clinical Impression: Otitis media Instructions Patient Instructions: Middle Ear Infection, Ear Infections (Alternative Therapy) Discharge ED Provider: Lindsey Adams [facility] [place] General Stated complaint: cough, sore throat, congestion Mode of Arrival: Ambulatory Source of Information: Patient Limitations: No Limitations Time Seen by Provider: 12/03/23 11:38 Description of Symptoms (Recalled from Triage Doc. by RN): PATIENT C/O COUGH, SORE THROAT, AND RUNNY NOSE SINCE YESTERDAY HEENT Symptoms (Recalled from RN notes): Yes Resp Symptoms (Recalled from RN notes): Yes Skin Symptoms (Recalled from RN notes): No MS Symptoms (Recalled from RN notes): No Functional Status (Recalled from RN notes): WNL History of Present Illness Provider Complaint: Patient states that she has been having cough and sore throat with runny nose that has continued to get wore since yesterday states that she is also having pain in her ears so today when she wasnt feeling any better she came in to get checked Related Data Home Medications Medication Instructions Recorded Confirmed aspirin 81 mg chewable tablet 81 mg PO DAILY Heart disease 10/29/17 12/03/23 empagliflozin 25 mg tablet 25 mg PO DAILY Diabetes 08/18/18 12/03/23 metformin 500 mg tablet,extended 1,000 mg PO BID DIABETES 08/18/18 12/03/23 release 24 hr biotin 500 mcg capsule 2,500 mcg PO DAILY 12/03/23 12/03/23 buspirone 5 mg tablet 5 mg PO DAILY 12/03/23 12/03/23 insulin lispro protamine-lispro 30 unit SQ BID 12/03/23 12/03/23 100 unit/mL (75-25) subcutaneous pen (Humalog Mix 75-25 KwikPen) losartan 50 mg tablet 50 mg PO DAILY 12/03/23 12/03/23 crztsazulagg-agrrlzbg-lktjdl tablet 1 tab PO DAILY 12/03/23 12/03/23 omega 1-koa-ybg-fish oil 1,000 mg 1 cap PO DAILY 12/03/23 12/03/23 (120 mg-180 mg) capsule (Fish Oil) rosuvastatin 40 mg tablet 40 mg PO DAILY 12/03/23 12/03/23 Previous Rx's Medication Instructions Recorded amoxicillin 500 mg capsule 500 mg PO TID 7 days #21 caps 12/03/23 benzonatate 100 mg capsule 100 mg PO TID PRN cough #30 caps 12/03/23 Allergies Allergy/AdvReac Type Severity Reaction Status Date / Time No Known Allergies Allergy Verified 09/04/22 08:31 Worker's Comp Is this a Worker's Comp case?: No [facility] Disclaimer: The information contained in this section may have been updated after the patient was seen, as this information can be updated by other users. Medical History (Updated 12/03/23 @ 11:42 by Lindsey Adams APRN) Diabetes mellitus, type 2 Hyperlipidemia Hypertension Surgical History (Updated 12/03/23 @ 11:22 by Elmira Moscoso RN) History of tubal ligation History of tonsillectomy Social History Smoking Status: Never smoker alcohol intake: never substance use type: denies use current occupational status: other Travel in the last 8 weeks: None household members: spouse housing: house caffeine: Yes ROS Obtained: Yes All systems reviewed & no additional complaints except as documented and Yes Systems reviewed as appropriate & no additional complaints except as documented Constitutional Constitutional: Reports system reviewed and no additional complaints, except as documented, Reports as per HPI and Reports headache(s) ENT Ears, Nose, Mouth, and Throat: Reports system reviewed and no additional complaints, except as documented, Reports as per HPI, Reports otalgia, Reports headache(s), Reports nasal congestion, Reports sinus pressure and Reports sore throat Cardiovascular Cardiovascular: Reports system reviewed and no additional complaints, except as documented and Reports as per HPI Respiratory Respiratory: Reports system reviewed and no additional complaints, except as documented, Reports as per HPI and Reports cough Gastrointestinal Gastrointestingal: Reports system reviewed and no additional complaints, except as documented and as per HPI Neurologic Neurologic: Reports headache(s) Physical Exam General General appearance: alert and in no apparent distress ENT ENT exam: Present mucous membranes moist Expanded ENT Exam TM/Canal exam: Right TM: erythema and bulging Nose exam: Present sinus tenderness Throat exam: Present other (Pharyngeal erythema noted with PND) Respiratory Respiratory exam: Present normal lung sounds bilaterally; Absent respiratory distress or wheezes Cardiovascular Cardiovascular exam: Present regular rate, normal rhythm and normal heart sounds Neurological Exam Neurological exam: Present alert, oriented X3 and normal gait Medical Decision Making [place] Inquiry Pt receiving controlled substance: No [place] was queried for this patient: No Vital Signs: 12/03/23 11:10 Temperature 98.2 F Temperature Source Oral Pulse Rate [Left Brachial] 94 H Respiratory Rate 18 Blood Pressure [Left Arm] 149/67 H Blood Pressure Mean [Left Arm] 94 Blood Pressure Source [Left Arm] Automatic Cuff Blood Pressure Position [Left Arm] Sitting 02 Sat by Pulse Oximetry 95 Oxygen Delivery Method Room Air Lab Data Lab results reviewed: Yes I reviewed the patient's lab results. Lab Results 12/03/23 11:15: Strep Scn Rapid Clinic Negative Orders (Tests/Meds): ORDERS Category Date Time Status Strep Screen Confirmation Stat Micro 12/03/23 11:15 Received
[2023-12-03 11:40] VITALS: BP 149/67; PULSE 94; RESP 18; TEMP 36.8; O2SAT 95
== END 2023-12-03 11:45 | disposition home or self-care (01) ==
PROVIDERS: Emergency Provider Nurse Practitioner; PCP Internal Medicine Adolescent Medicine
DX: H66.91 Otitis media, unspecified, right ear (principal); R05.9 Cough, unspecified; R07.0 Pain in throat; R09.81 Nasal congestion
CPT/HCPCS: 87880; 99212; 99214; G0463

== ENCOUNTER 2023-12-23 07:20 | Day surgery (SDC) | payer MEDICARE, OTHER, SELFPAY ==
[2023-12-22 12:21] VITALS: BMI 36.5
[2023-12-23] VITALS (7 sets, daily range): BP systolic 103–139; BP diastolic 49–71; PULSE 72–92; RESP 16–18; TEMP 36.1–36.7; O2SAT 96–98; BMI 36.5
[2023-12-23] MEDS: LACTATED RINGERS 1000ML 1,000 ML 25 ML IV (07:46)
--- NOTE | 2023-12-23 07:59 | [facility].SCOPE ---
Procedure: Date: 12/23/23 Patient Date of :: 1955 Procedure Performed:: Colonoscopy with polypectomy Indications:: History of colon polyps Note: Most recent colonoscopy in October 2018 (Dr. Valdez) revealed mild hemorrhoids and diverticulosis. An adenoma was excised from the left colon. Performing Provider:: Asa Rios MD Referring Provider:: . Sedation:: Monitored anesthesia care Procedure:: After informed consent was obtained the patient was taken to the endoscopy suite. Sedation ensued after the patient was transferred to the left lateral decubitus position. Pulse, blood pressure, and oxygen saturation were monitored throughout the procedure. Digital rectal exam revealed no significant abnormality. The colonoscope was placed in position. The entire colon was evaluated. The colonoscope was carefully removed and the patient was transferred to recovery in stable condition. Please see findings and specimens below for detail. Findings:: Bowel preparation fair Moderate spasticity/lack of relaxation Moderate tortuosity Sigmoid diverticulosis Adjacent polyps at 70 cm Specimens:: Adjacent polyps at 70 cm (cold snare and cold biopsy forceps) Recommendations:: Timing of repeat colonoscopy is pending pathology will likely be around 3-5 years secondary to history of polyps, spasticity/lack of relaxation, and tortuosity. Complications:: No immediate Estimated blood obtained (mL): 1 Colonoscopy Component Colonoscopy Component Was a colonoscopy performed during today's procedure?: Yes Recommended follow up colonoscopy of at least 10 years?: No If no, follow up colonoscopy recommended in ___ years?: (See above) Reason for not recommending >/= 10 yr follow-up interval?: (See above)
--- NOTE | 2023-12-23 08:02 | P.PNANES_ITS ---
[facility] Disclaimer: The information contained in this section may have been updated after the patient was seen, as this information can be updated by other users. Medical History Diabetes mellitus, type 2 Hyperlipidemia Hypertension Surgical History History of tubal ligation History of tonsillectomy Family History Other No significant family history Social History (Updated 12/23/23 @ 07:32 by Coreen Wild RN) Smoking Status: Never smoker alcohol intake: never substance use type: denies use current occupational status: other Travel in the last 8 weeks: None household members: spouse housing: house caffeine: Yes [facility] Anesthesia Checklist Patient Identification Patient Identification: Arm Band and Verbal (Name & ) Structural Data Admitted From: Home Planned Operative Procedure/s: Colonoscopy Consent for Planned Operative Procedure(s) Verified: Yes Verified Documents: Surgical Consent and History and Physical NPO Status Verified Time NPO: 01:30 Chart Verification Results Verified: CBC, BMP and ECG Additional verifications Fingerstick Blood Glucose: 156 Patient : No Anesthesia Reactions: No Hx Blood Transfusions: No Blood Transfusion Reaction: No Cardiovascular Assessment Heart Sounds: S1 & S2 Pulse Rhythm: Irregular Peripheral Edema: No Airway Assessment Mallampati Score:: Class II C-Spine Mobility Assessed: Yes (FROM) TMJ Mobility Assessed: Yes Dentition: Good Dentition (Nothing loose per pt.) Neurological Assessment Level of Consciousness: Awake, Alert, Appropriate and Follows Commands Hx Seizures: No Numbness or tingling in extremities: No Anesthesia Plan Anesthesia Risk discussed: Yes Anesthesia Plan: Verified ASA Class: III Anesthesia Type: MAC
--- NOTE | 2023-12-23 08:54 | EXP.ANES.I ---
[facility] Anesthesia Record Part I Anesthesia Record I Intake, IV Amount: 700 Hydration: Adequate Estimated blood loss (mL): 1 Urine output (mL): 0 Blood Products used (#): none Blood Pressure: 103/49 SaO2: 96 Pulse Rate: 72 Airway Patency: Patent Respiratory Rate: 16 Temperature: 98.1 F Patient is:: Awake (Talking) and Stable Stable to PACU at:: 08:56
[2023-12-23 18:25] LABS: POC Glucose,Bedside 156 (70-110)
== END 2023-12-23 09:25 | disposition home or self-care (01) ==
PROVIDERS: PCP Internal Medicine Adolescent Medicine; Visit Provider Surgery
PROC: 0DJD8ZZ Inspection of Lower Intestinal Tract, Via Natural or Artificial Opening Endoscopic (ICD-10-PCS; CPT 45380; principal; 2023-12-23 08:30)
DX: Z12.11 Encounter for screening for malignant neoplasm of colon (principal); Z86.010 Personal history of colon polyps; K57.30 Diverticulosis of large intestine without perforation or abscess without bleeding; D12.4 Benign neoplasm of descending colon; K63.5 Polyp of colon; E11.9 Type 2 diabetes mellitus without complications
CPT/HCPCS: 45380; 45385; 82962; 88305; J7120

== ENCOUNTER 2024-10-19 08:30 | Outpatient (CLI) | payer MEDICARE, OTHER, SELFPAY ==
--- OUTSIDE RECORDS SUMMARY | 2024-10-19 08:34 | XMS_ITS | Clinical Summary ---
Author Organization [facility] Address [address] [place] [address] Phone Care Team Providers Care Acid Plant Helper Name Role Phone Jasmeet Talavera Primary Care Provider [phone] Jose Enrique GAVIN, Bartolo Smith Unavailable [phone] Reason for Visit and Chief Complaint The Chief Complaint is: right hand pain Problems Includes: Problems addressed during this encounter and other active Problems All Visits Onset Date Resolved Date Provider Condition S tatus Pain in the Right Hand Only 01/29/2018 Bartolo Quispe MD Active Last Documented On 8 9:51AM ; [facility] Plan of Treatment - Patient screened for future fall risk: documentation of any fall with injury in past year - Last Documented On 08/19/2024 3:57PM ; [facility], [facility] Fall Risk Assessment: This patient has been identified as a fall risk. Balance/gait along with postural blood pressure, vision and home fall hazards have been assessed. Medications have been reviewed, and recommendations made with regard to contributing factors for future falls. Plan of care: Consideration of vitamin D supplementation along with balance and strength training with consideration for formal physical therapy has been discussed with the patient. - Last Documented On 08/19/2024 3:57PM ; [facility], [facility] 1. Trigger finger injection the patient's right hand is prepped with an alcohol swab 5 mg of Kenalog in 1 mL of 2% lidocaine are instilled into the tendon sheath of the long finger using a 27-gauge needle and a 3 mL syringe, the needle is withdrawn the patient tolerates this well. 2. Trigger finger injection the patient's right hand is prepped with an alcohol swab 5 mg of Kenalog in 1 mL of 2% lidocaine are instilled into the tendon sheath of the ring finger using a 27-gauge needle and a 3 mL syringe, the needle is withdrawn the patient tolerates this well. 3. She will follow up as needed. - Last Documented On 08/19/2024 3:57PM ; [facility], [facility] Instructions to patient Lose weight Last Documented On 5 11:07AM ; [facility], [facility] Assessments Includes: Assessments from this encounter Findings - Overweight - Last Documented On 08/19/2024 3:57PM ; [facility] Right long and ring trigger fingers - Last Documented On 08/19/2024 3:57PM ; [facility] Instructions Includes: Instructions from this encounter Instructions to patient Lose weight Last Documented On 5 11:07AM ; [facility], [facility] Medical Equipment - Implanted Devices Includes: Current Devices No Medical Equipment Recorded Medications Includes: Medications discussed during this encounter and other current Medications Discontinued / Stopped on this date BENJAMIN GOLDEN MD on 12/28/2021 Losartan Potassium 25 MG Oral Tablet Prov ider: BENJAMIN GOLDEN MD Diagnosis: Last Documented On 5 11:10AM By Asha Vieira ; [facility], [facility] busPIRone HCl 5 MG Oral Tablet Provider: Viviane Bah APRN Diagnosis: Last Documented On 5 11:10AM By Asha Vieira ; [facility], [facility] metFORMIN HCl ER 500 MG Oral Tablet Extended Release 2 4 Hour Provider: Diagnosis: Last Documented On 5 11:10AM By Asha Vieira ; [facility], [facility] Alogliptin-Metformin HCl 12.5-500MG Oral Tablet Provider: Diagnosis: Last Documented On 5 11:10AM By Asha Vieira ; [facility], [facility] Current Medications (continue as prescribed) busPIRone HCl 5 MG Oral Tablet 08/13/2024 Provider: Viviane Bah APRN Diagnosis: Last Documented On 5 11:10AM By Asha Vieira ; [facility], [facility] Losartan Potassium 50 MG Oral Tablet 08/13/2024 Prov ider: Viviane Bah APRN Diagnosis: Last Documented On 5 11:10AM By Asha CARRANZA, [facility] metFORMIN HCl ER 500 MG Oral Tablet Extended Rel ease 24 Hour 08/13/2024 Provider: Diagnosis: Last Documented On 5 11:10AM By Asha Vieira ; [facility], [facility] Rosuvastatin Calcium 40 MG O ral Tablet 08/13/2024 Provider: Viviane dunn APRN Diagnosis: Last Documented On 5 11:10AM By Asah CARRANZA, [facility] HumaLOG Mix 75/25 KwikPen (7 5-25) 100 UNIT/ML Subcutaneous Suspension Pen-injector 07/28/2024 Provider: Diagnosis: Last Documented On 5 11:10AM By Asha Vieira ; [facility], [facility] Past Medications on file Pravastatin Sodium 10 MG Oral Tablet 01/03/2022 - 01/06 Provider: Diagnosis: Last Documented On 2 2:01PM By Berna CARRANZA, [facility] Jardiance 10 MG Oral Tablet 01/03/2022 - 02/02/2022 Pr ovider: Diagnosis: Last Documented On 2:01PM By Berna Davis ; [facility], [facility] Medications Administered Includes: Administered Medications from this encounter No Administered Medications Recorded Vital Signs Includes: Vital Signs from this encounter Vital Name 08/19/2024 11:07A Height (in) 68 Weight (lb) 239 Body Mass Index 36.3 Body Surface Area 2.2 Note: Last Documented: On 08/19/2024 11:08A M ; [facility], [facility] Results Includes: Results discussed during this encounter No Results Recorded For Specified Dates History of Present Illness Includes: History of Present Illness from this encounter ELLIE Villavicencio is a 68 year old female. - Allergy list reviewed - Problem list reviewed - Medication list reviewed - - Review of medications documented Patient returns today with recurrence of triggering in her right long finger and beginning triggering in her right ring finger. Her last cortisone injections were on 05/13/2023. She states they worked well and have only recently worn off. She is requesting repeat cortisone injections today. Social History Description Last Updated Tobacco non-user 10/01/2022 Last Documented On 5 11:07AM ; [facility] Non-smoker 01/03/2022 Last Documented On 5 11:07AM ; [facility] Caffeine use 01/03/2022 Last Documented On 5 11:07AM ; [facility] No recent change in diet 01/03/2022 Last Documented On 5 11:07AM ; [facility] Not a current smoker. 01/03/2022 Last Documented On 5 11:07AM ; [facility] Not exercising regularly 01/03/2022 Last Documented On 5 11:07AM ; [facility] Not using alcohol 01/03/2022 Last Documented On 5 11:07AM ; [facility] Not using drugs 01/03/2022 Last Documented On 5 11:07AM ; [facility], [facility] No recent change in diet 07/23/2018 Last Documented On 5 11:07AM ; [facility] No tobacco use 07/23/2018 Last Documented On 5 11:07AM ; [facility], [facility] Not a current smoker 07/23/2018 Last Documented On 5 11:07AM ; [facility] Smoking status : Never smoker 07/23/2018 Last Documented On 5 11:07AM ; [facility], [facility] Procedures and Surgical History Includes: Procedures from this encounter Procedures Code Diagnosis Performing Provider Service Location Service Date INJ TENDON SHEATH/LIGAMENT (RIGHT HAND, FOURTH DIGIT) Trigger finger, right ring finger Asha Vieira APRN [facility] 08/19/2024 Last Documented On 5 10:53AM ; [facility], [facility] INJ TENDON SHEATH/LIGAMENT (Distinct procedure, RIGHT HAND, THIRD DIGIT) Trigger finger, right middle finger Asha Vieira QUALITY ASSURANCE REPRESENTATIVE [facility] 08/19/2024 Last Documented On 5 10:53AM ; [facility] Triamcinolone/Kenalog, 10mg per cc [id number] Trigger finger, right middle finger, Trigger finger, right ring finger Ashawilber Vieira QUALITY ASSURANCE REPRESENTATIVE [facility] 08/19/2024 Last Documented On 5 10:53AM ; [facility], [facility] use of tobacco assessment performed 1000F Last Documented On 5 11:07AM ; [facility], [facility] patient screened for future fall risk 3288F Last Documented On 5 11:07AM ; [facility], [facility] patient screened for future fall risk: documentation of any fall with injury in past year 1100F Last Documented On 5 11:07AM ; [facility], [facility] Medical History Includes: Medical History addressed during this encounter Description Last Updated History of diabetes mellitus 01/03/2022 Last Documented On 5 11:07AM ; [facility], [facility] History of hepatitis 01/03/2022 Last Documented On 5 11:07AM ; [facility], [facility] History of Hypertension 01/03/2022 Last Documented On 5 11:07AM ; [facility], [facility] Past Surgical History: removal of ovary, tonsillectomy, tubal ligation 01/03/2022 Last Documented On 5 11:07AM ; [facility], [facility] Recent immunization for flu 01/03/2022 Last Documented On 5 11:07AM ; [facility], [facility] Recent immunization for pneumococcal pne umonia 01/03/2022 Last Documented On 5 11:07AM ; [facility], [facility] ovary removal, tubal ligation, tonsilect tori 07/23/2018 Last Documented On 5 11:07AM ; [facility], [facility] Intermittent hypertension 07/23/2018 Last Documented On 5 11:07AM ; [facility], [facility] Family History Includes: Family History addressed during this encounter Description Last Updated Family history of heart disease 01/04/20 Last Documented On 5 11:07AM ; [facility], [facility] Paternal history of family history of he art disease 07/23/2018 Last Documented On 5 11:07AM ; [facility], [facility] Review of Systems Includes: Review of Systems from this encounter Systemic: Not feeling tired, no recent weight loss, and no recent weight gain. Head: No headache and no sinus pain. Eyes: No vision problems and no Cataracts. Glasses/Contacts. No Glaucoma. Otolaryngeal: No hearing loss. Tinnitus. Cardiovascular: No chest pain or discomfort, no palpitations, and no Hypertension. High Cholesterol. Pulmonary: No daytime asthma symptoms and no chronic cough. No wheezing. Gastrointestinal: Heartburn. No abdominal pain. No Indigestion, no Peptic Ulcer, no GI Stomach Bleed, and no Ulcers. Acid Reflux. Endocrine: No hot flashes and no muscle weakness. Diabetes. No Hypothyroid and no Hyperthyroid. Hematologic: No easy bleeding, no tendency for easy bruising, and no Anemia. Musculoskeletal: No Arthritis and no lower back pain. No soft tissue swelling and no localized joint pain. Neurological: No dizziness, no convulsions, and no numbness. Psychological: No anxiety, no emotional lability, no depression, and no insomnia. Not crying for no reason. Skin: No dry skin. No Ulcers, no Scars, and no rash. Allergic and Immunologic: Complaint of seasonal allergic reaction. Mental Status Includes: Mental Status from this encounter Description No anxiety Functional Status Includes: Functional Status from this encounter No Functional Status Recorded Physical Exam Includes: Physical Exam from this encounter Allergies Includes: Active Allergies No Known Allergies Encounters Encounter Provider Location Date Check-In Time Check-Out Time Diagnosis Follow Up Asha Vieira APRN [facility] 5 10:56AM 12:04PM Overweight Insurance Includes: Active Insurance Policies Plan Name Member ID Group # Subscriber Relationship Effect brenna Dates 1 - Medicare Part B [facility] [id number] Laney Villavicencio Self 2 - [employer] [id number] Laney Villavicencio Self 07/07/2021 - Unknown Clinical Notes Includes: Clinical Notes from this encounter * Progress note Date Encounter Last Documented by 08/19/2024 Follow Up Last documented on 08/19/2024; 3:57 PM, Asha Vieira APRN; [facility], [facility] Active Problems & Conditions - Pain in the Right Hand Only Chief Complaint The Chief Complaint is: Right hand pain. Referred Here Referred by pcp. History of Present Illness Laney Villavicencio is a 68 year old female. - Allergy list reviewed - Problem list reviewed - Medication list reviewed - - Review of medications documented Patient returns today with recurrence of triggering in her right long finger and beginning triggering in her right ring finger. Her last cortisone injections were on 05/13/2023. She states they worked well and have only recently worn off. She is requesting repeat cortisone injections today. Current Medication - busPIRone HCl 5 MG Oral Tablet take as directed 30 days, 0 refills - HumaLOG Mix 75/25 KwikPen (75-25) 100 UNIT/ML Subcutaneous Suspension Pen- injector use as directed 21 days, 0 refills - Losartan Potassium 50 MG Oral Tablet take as directed 30 days, 0 refills - metFORMIN HCl ER 500 MG Oral Tablet Extended Release 24 Hour take as directed 30 days, 0 refills - Rosuvastatin Calcium 40 MG Oral Tablet take as directed 30 days, 0 refills Past Medical/Surgical History Reported: Medical: Intermittent hypertension. Immunization History: Recent immunization for flu and for pneumococcal pneumonia. Diagnoses: Hypertension. Hepatitis. Diabetes mellitus Ovary removal, tubal ligation, tonsilectomy. Surgical: - Past Surgical History: removal of ovary, tonsillectomy, tubal ligation Social History Not a current smoker. Current diet: No recent change in diet. No recent change in diet. Caffeine use: Caffeine use. Tobacco use: No tobacco use and not a current smoker. Tobacco non-user and non-smoker. Smoking status: Never smoker. Alcohol: Not using alcohol. Drug Use: Not using drugs. Habits: Not exercising regularly. Allergies - No Known Allergies Family History Heart disease Paternal: Heart disease Review Of Systems Systemic: Not feeling tired, no recent weight loss, and no recent weight gain. Head: No headache and no sinus pain. Eyes: No vision problems and no Cataracts. Glasses/Contacts. No Glaucoma. Otolaryngeal: No hearing loss. Tinnitus. Cardiovascular: No chest pain or discomfort, no palpitations, and no Hypertension. High Cholesterol. Pulmonary: No daytime asthma symptoms and no chronic cough. No wheezing. Gastrointestinal: Heartburn. No abdominal pain. No Indigestion, no Peptic Ulcer, no GI Stomach Bleed, and no Ulcers. Acid Reflux. Endocrine: No hot flashes and no muscle weakness. Diabetes. No Hypothyroid and no Hyperthyroid. Hematologic: No easy bleeding, no tendency for easy bruising, and no Anemia. Musculoskeletal: No Arthritis and no lower back pain. No soft tissue swelling and no localized joint pain. Neurological: No dizziness, no convulsions, and no numbness. Psychological: No anxiety, no emotional lability, no depression, and no insomnia. Not crying for no reason. Skin: No dry skin. No Ulcers, no Scars, and no rash. Allergic and Immunologic: Complaint of seasonal allergic reaction. Physical Findings - Vitals taken 08/19/2024 11:07 am AH Height 68 in Weight 239 lbs Body Mass Index 36.3 kg/m2 Body Surface Area 2.2 m2 The patient is awake alert oriented in time place and person. Is in no acute distress. Has normal mood and affect. Is neatly dressed. Has normal gait and station. Pupils are equal and react to light normally. Eyes move normally. Mucous membranes are moist. The patient has no trouble with speech. The patient is afebrile. On exam, the right hand is pink and warm with brisk cap refill. She is tender to palpation over the right long and ring finger A1 pulleys. There is crepitus and active triggering in the long finger, but not the ring. Assessment - Overweight Right long and ring trigger fingers Counseling/Education - Tobacco non-user - Use of tobacco assessment performed - Lose weight Plan - Patient screened for future fall risk: documentation of any fall with injury in past year Fall Risk Assessment: This patient has been identified as a fall risk. Balance/gait along with postural blood pressure, vision and home fall hazards have been assessed. Medications have been reviewed, and recommendations made with regard to contributing factors for future falls. Plan of care: Consideration of vitamin D supplementation along with balance and strength training with consideration for formal physical therapy has been discussed with the patient. 1. Trigger finger injection the patient's right hand is prepped with an alcohol swab 5 mg of Kenalog in 1 mL of 2% lidocaine are instilled into the tendon sheath of the long finger using a 27-gauge needle and a 3 mL syringe, the needle is withdrawn the patient tolerates this well. 2. Trigger finger injection the patient's right hand is prepped with an alcohol swab 5 mg of Kenalog in 1 mL of 2% lidocaine are instilled into the tendon sheath of the ring finger using a 27-gauge needle and a 3 mL syringe, the needle is withdrawn the patient tolerates this well. 3. She will follow up as needed. Notes This dictation was done with voice recognition software and may contain errors and omissions. Practice Management Use of tobacco assessment performed and patient screened for future fall risk documentation of any fall with injury in past year. Care Team - Jasmeet Talavera
--- OUTSIDE RECORDS SUMMARY | 2024-10-19 08:34 | XMS_ITS | Clinical Summary ---
Author Organization [facility] Address [address] [place] [address] Phone Care Team Providers Care Product Support Engineer Name Role Phone Jasmeet Talavera Primary Care Provider [phone] Jose Enrique GAVIN, Bartolo Smith Unavailable [phone] Reason for Visit and Chief Complaint The Chief Complaint is: R hand pain Problems Includes: Problems addressed during this encounter and other active Problems All Visits Onset Date Resolved Date Provider Condition S tatus Pain in the Right Hand Only 01/29/2018 Bartolo Quispe MD Active Last Documented On 8 9:51AM ; [facility] Plan of Treatment 1. Trigger finger injection the patient's hand is prepped with an alcohol swab 5 mg of Kenalog in 1 mL of 2% lidocaine are instilled into the tendon sheath of the right ring finger using a 27-gauge needle and a 3 mL syringe, the needle is withdrawn the patient tolerates this well. 2. Patient prefers to follow up as needed and this is fine. - Last Documented On 07/23/2018 11:35AM ; [facility] Assessments Includes: Assessments from this encounter Findings Recurrent right ring trigger finger - Last Documented On 07/23/2018 11:35AM ; [facility] Medical Equipment - Implanted Devices Includes: Current Devices No Medical Equipment Recorded Medications Includes: Medications discussed during this encounter and other current Medications Current Medications (continue as prescribed) busPIRone HCl 5 MG Oral Tablet 08/13/2024 Provider: Viviane Bah APRN Diagnosis: Last Documented On 5 11:10AM By Asha Vieira ; [facility] Losartan Potassium 50 MG Oral Tablet 08/13/2024 Prov ider: Viviane Bah [employer] Diagnosis: Last Documented On 5 11:10AM By Asha Vieira ; [facility] metFORMIN HCl ER 500 MG Oral Tablet Extended Rel ease 24 Hour 08/13/2024 Provider: Diagnosis: Last Documented On 5 11:10AM By Asha Vieira ; [facility] Rosuvastatin Calcium 40 MG O ral Tablet 08/13/2024 Provider: Viviane dunn [employer] Diagnosis: Last Documented On 5 11:10AM By Asha Vieira ; [facility] HumaLOG Mix 75/25 KwikPen (7 5-25) 100 UNIT/ML Subcutaneous Suspension Pen-injector 07/28/2024 Provider: Diagnosis: Last Documented On 5 11:10AM By Asha Vieira ; [facility] Past Medications on file Pravastatin Sodium 10 MG Oral Tablet 01/03/2022 - 01/06 Provider: Diagnosis: Last Documented On 2 2:01PM By Berna Davis ; [facility] Jardiance 10 MG Oral Tablet 01/03/2022 - 02/02/2022 Pr ovider: Diagnosis: Last Documented On 2 2:01PM By eBrna Davis ; [facility] Medications Administered Includes: Administered Medications from this encounter No Administered Medications Recorded Vital Signs Includes: Vital Signs from this encounter Vital Name 07/23/2018 11:06A Blood Pressure Sitting (mmHg) 125/61 Pulse Rate-Sitting (bpm) 84 Height (in) 68 Weight (lb) 236 Body Mass Index (kg/m2) 35.9 Body Surface Area (m2) 2.2 Note: tmg Last Documented: On 07/23/2018 11:09A M ; [facility] Results Includes: Results discussed during this encounter No Results Recorded For Specified Dates History of Present Illness Includes: History of Present Illness from this encounter ELLIE Villavicencio is a 62 year old female. - Medication list reviewed with patient. - Pain is occasional (25% of the time). Please rate pain on scale of 1 - 10: 4. Patient returns today for follow-up regarding her right ring trigger finger. She was last seen in January of last year and received a cortisone injection that she states worked for approximately 4 months. She has now noticed a return of triggering, but she denies pain. Social History Description Last Updated No caffeine use 07/23/2018 Last Documented On 9 11:35AM ; [facility] No recent change in diet 07/23/2018 Last Documented On 9 11:35AM ; [facility] No tobacco use 07/23/2018 Last Documented On 9 11:35AM ; [facility] Not a current smoker 07/23/2018 Last Documented On 9 11:35AM ; [facility] Not exercising regularly 07/23/2018 Last Documented On 9 11:35AM ; [facility] Not using alcohol 07/23/2018 Last Documented On 9 11:35AM ; [facility] Not using drugs 07/23/2018 Last Documented On 9 11:35AM ; [facility] Smoking status : Never smoker 07/23/2018 Last Documented On 9 11:35AM ; [facility] Procedures and Surgical History Includes: Procedures from this encounter Procedures Code Diagnosis Performing Provider Service L ocation Service Date Clinical summary provided to patient Last Documented On 9 11:06AM ; [facility] Medical History Includes: Medical History addressed during this encounter Description Last Updated ovary removal, tubal ligation, tonsilect tori 07/23/2018 Last Documented On 9 11:35AM ; [facility] Intermittent hypertension 07/23/2018 Last Documented On 9 11:35AM ; [facility] Family History Includes: Family History addressed during this encounter Description Last Updated Paternal history of family history of he art disease 07/23/2018 Last Documented On 9 11:35AM ; [facility] Review of Systems Includes: Review of Systems from this encounter Systemic: Not feeling tired (fatigue), no recent weight loss, and no recent weight gain. No edema. Head: No headache and no sinus pain. Eyes: No vision problems and no glaucomatous visual field defect. Otolaryngeal: No hearing loss and no tinnitus. No nasal symptoms. Cardiovascular: No chest pain or discomfort and no palpitations. Pulmonary: No daytime asthma symptoms, no cough, and no chronic cough. No wheezing. Gastrointestinal: No heartburn and no abdominal pain. Endocrine: No hot flashes and no muscle weakness. Hematologic: No easy bleeding and no tendency for easy bruising. Musculoskeletal: No lower back pain. No soft tissue swelling and no localized joint pain. Neurological: No dizziness, no convulsions, and no numbness. Psychological: No anxiety, no emotional lability, no depression, and no insomnia. Not crying for no reason. Skin: No dry skin, no rash, and no ulcers. Allergic and Immunologic: No complaint of seasonal allergic reaction. Mental Status Includes: Mental Status from this encounter Description No anxiety Functional Status Includes: Functional Status from this encounter No Functional Status Recorded Physical Exam Includes: Physical Exam from this encounter Allergies Includes: Active Allergies No Known Allergies Encounters Encounter Provider Location Date Check-In Time Check- Out Time Diagnosis Follow Up Asha Vieira APRN [facility] 9 10:15AM 11:22AM Insurance Includes: Active Insurance Policies Plan Name Member ID Group # Subscriber Relationship Effect brenna Dates 1 - Medicare Part B [facility] [id number] Laney Villavicencio Self 2 - [facility] [id number] Laney Alston 07/07/2021 - Unknown Clinical Notes Includes: Clinical Notes from this encounter No Clinical Notes Recorded
--- OUTSIDE RECORDS SUMMARY | 2024-10-19 08:34 | XMS_ITS ---
Author Organization [facility] Address [address] [place] [address] Phone Care Team Providers Care Hand Roller Name Role Phone Jasmeet Talavera Primary Care Provider [phone] Jose Enrique GAVIN, Bartolo Smith Unavailable [phone] Problems Includes: Active, inactive, and resolved Problems All Visits Onset Date Resolved Date Provider Condition S tatus Pain in the Right Hand Only 01/29/2018 Bartolo Quispe MD Active Last Documented On 8 9:51AM ; [facility] Plan of Treatment Findings Encounter Date Patient screened for future fall risk: documentation of any fall with injury in past year Follow Up with Asha Vieira APRN 08/19/2024 Last Documented On 5 3:57PM ; [facility] Instructions to patient Lose weight Last Documented On 5 11:07AM ; [facility] Lose weight Last Documented On 3 10:41AM ; [facility] Lose weight Last Documented On 3 10:32AM ; [facility] Lose weight Last Documented On 2 2:01PM ; [facility] Assessments Includes: Assessments for all patient encounters Findings Encounter Date Overweight Follow Up with Asha Vieira APRN 08/19/2024 Last Documented On 5 3:57PM ; [facility] Encouragement for diabetes rui salcido maternal Physician Specified with Bartolo Quispe MD 01/29/2018 Last Documented On 8 11:04AM ; [facility] Instructions Includes: Instructions for all patient encounters Instructions to patient Lose weight Last Documented On 5 11:07AM ; [facility] Lose weight Last Documented On 3 10:41AM ; [facility] Lose weight Last Documented On 3 10:32AM ; [facility] Lose weight Last Documented On 2 2:01PM ; [facility] Medical Equipment - Implanted Devices Includes: Current and historical Devices No Medical Equipment Recorded Medications Includes: Current and historical Medications Current Medications (continue as prescribed) busPIRone HCl 5 MG Oral Tablet 08/13/2024 Provider: Viviane Bah APRN Diagnosis: Last Documented On 5 11:10AM By Asha Vieira ; [facility] Losartan Potassium 50 MG Oral Tablet 08/13/2024 Prov ider: Viviane Bah APRN Diagnosis: Last Documented On 5 11:10AM By Asha Vieira ; [facility] metFORMIN HCl ER 500 MG Oral Tablet Extended Rel ease 24 Hour 08/13/2024 Provider: Diagnosis: Last Documented On 5 11:10AM By Asha Vieira ; [facility] Rosuvastatin Calcium 40 MG O ral Tablet 08/13/2024 Provider: Viviane dunn APRN Diagnosis: Last Documented On 5 11:10AM By Asha Vieira ; [facility] HumaLOG Mix 75/25 KwikPen (7 5-25) 100 UNIT/ML Subcutaneous Suspension Pen-injector 07/28/2024 Provider: Diagnosis: Last Documented On 5 11:10AM By Asha Vieira ; [facility] Past Medications on file Pravastatin Sodium 10 MG Oral Tablet 01/03/2022 - 01/06 Provider: Diagnosis: Last Documented On 2 2:01PM By Berna Davis ; [facility] Jardiance 10 MG Oral Tablet 01/03/2022 - 02/02/2022 Pr ovider: Diagnosis: Last Documented On 2 2:01PM By Berna Davis ; [facility] Losartan Potassium 25 MG Ora l Tablet 12/28/2021 - 08/19/2024 Provider: BENJAMIN Fuentes Diagnosis: Last Documented On 5 11:10AM By Asha Vieira ; [facility], [facility] busPIRone HCl 5 MG Oral Tablet 12/17/2021 - 08/19/2024 Provider: Viviane diamond APRN Diagnosis: Last Documented On 5 11:10AM By Asha Vieira ; [facility], [facility] metFORMIN HCl ER 500 MG Oral Tablet Extended Release 24 Hour 12/04/2021 - 08/19/2024 Provider: Diagnosis: Last Documented On 5 11:10AM By Asha Vieira ; [facility] Adult Aspirin EC Low Strengt h 81MG Oral Tablet Delayed Release 01/29/2018 - 01/03/2022 Provider: Diagnosis: Last Documented On 2 2:02PM By Berna Davis ; [facility], [facility] HM Super Vitamin B Complex/C Oral Tablet 01/29/2018 - 01/03/2022 Provider: Diagnosis: Last Documented On 2 2:02PM By Berna Davis ; [facility] Naproxen Sodium 220MG Oral Capsule 01/29/2018 - Provider: Diagnosis: Last Documented On 2 2:02PM By Berna Davis ; [facility] Fish Oil 1000MG Oral Capsule 01/29/2018 - 01/04/20 Provider: Diagnosis: Last Documented On 2 2:02PM By Berna Davis ; [facility], [facility] Glimepiride 2MG Oral Tablet 01/16/2018 - 01/03/2022 Pr ovider: Diagnosis: Last Documented On 2 2:02PM By Berna Davis ; [facility], [facility] Pravastatin Sodium 10MG Oral Tablet 01/09/2018 - 01/03 Provider: Diagnosis: Last Documented On 2 2:01PM By Berna Davis ; [facility], [facility] Alogliptin-Metformin HCl 12.5-500MG Oral Tablet 01/09/2018 - 08/19/2024 Provider: Diagnosis: Last Documented On 5 11:10AM By Asha Vieira ; [facility] Jardiance 10MG Oral Tablet 01/02/2018 - 01/03/2022 Pro vider: Diagnosis: Last Documented On 2 2:02PM By Berna Davis ; [facility] Medications Administered Includes: Administered Medications in patient's chart No Administered Medications Recorded Vital Signs Includes: Vital Signs from 10/20/2023 through 10/19/2024 Vital Name 08/19/2024 11:07A Height (in) 68 Weight (lb) 239 Body Mass Index 36.3 Body Surface Area 2.2 Note: AH Last Documented: On 08/19/2024 11:08A M ; [facility] Results Includes: Results from 10/20/2023 through 10/19/2024 No Results Recorded For Specified Dates History of Present Illness History of Present Illness not supported for this document type No History of Present Illness Recorded Social History Description Last Updated Tobacco non-user 10/01/2022 Last Documented On 3 10:54AM ; [facility] Non-smoker 01/03/2022 Last Documented On 3 10:54AM ; [facility] Caffeine use 01/03/2022 Last Documented On 3 10:54AM ; [facility] No recent change in diet 01/03/2022 Last Documented On 3 10:54AM ; [facility] Not a current smoker. 01/03/2022 Last Documented On 3 10:54AM ; [facility] Not exercising regularly 01/03/2022 Last Documented On 3 10:54AM ; [facility] Not using alcohol 01/03/2022 Last Documented On 3 10:54AM ; [facility] Not using drugs 01/03/2022 Last Documented On 3 10:54AM ; [facility] No recent change in diet 07/23/2018 Last Documented On 9 11:35AM ; [facility] No tobacco use 07/23/2018 Last Documented On 9 11:35AM ; [facility] Not a current smoker 07/23/2018 Last Documented On 9 11:35AM ; [facility] Smoking status : Never smoker 07/23/2018 Last Documented On 9 11:35AM ; [facility], [facility] Procedures and Surgical History Includes: Procedures from 10/20/2023 through 10/19/2024 Procedures Code Diagnosis Performing Provider Service Location Service Date Triamcinolone/Abiel alog, 10mg per cc [id number] Trigger finger, right middle finger, Trigger finger, right ring finger Asha Vieira [employer] [facility] 08/19/2024 Last Documented On 5 10:53AM ; [facility], [facility] INJ TENDON SHEATH/LIGAMENT (Distinct procedure, RIGHT HAND, THIRD DIGIT) [id number] Trigger finger, right middle finger Ahsa Vieira [employer] [facility] 08/19/2024 Last Documented On 5 10:53AM ; [facility], [facility] INJ TENDON SHEATH/LIGAMENT (RIGHT HAND, FOURTH DIGIT) [id number] Trigger finger, right ring finger Asha Vieira [employer] [facility] 08/19/2024 Last Documented On 5 10:53AM ; [facility], [facility] Medical History Includes: Medical History in patient's chart Description Last Updated History of diabetes mellitus 01/03/2022 Last Documented On 3 10:54AM ; [facility] History of hepatitis 01/03/2022 Last Documented On 3 10:54AM ; [facility], [facility] History of Hypertension 01/03/2022 Last Documented On 3 10:54AM ; [facility], [facility] Past Surgical History: removal of ovary, tonsillectomy, tubal ligation 01/03/2022 Last Documented On 3 10:54AM ; [facility] Recent immunization for flu 01/03/2022 Last Documented On 3 10:54AM ; [facility], [facility] Recent immunization for pneumococcal pne umonia 01/03/2022 Last Documented On 3 10:54AM ; [facility], [facility] ovary removal, tubal ligation, tonsilect tori 07/23/2018 Last Documented On 9 11:35AM ; [facility] Intermittent hypertension 07/23/2018 Last Documented On 9 11:35AM ; [facility], [facility] Family History Includes: Family History in patient's chart Description Last Updated Family history of heart disease 01/04/20 Last Documented On 3 10:54AM ; [facility] Paternal history of family history of he art disease 07/23/2018 Last Documented On 9 11:35AM ; [facility] Review of Systems Review of Systems not supported for this document type No Review of Systems Recorded Mental Status Description No anxiety Functional Status No Functional Status Recorded Physical Exam Physical Exam not supported for this document type No Physical Exam Recorded Immunizations Includes: Immunizations in patient's chart Vaccine Dose # Date Site Reaction(s) Status Source Influenza 1 04/06/2022 Complete (Reported) Patient Last Documented On 3 10:38AM ; [facility] PCV (Pneumovax 23) 1 04/06/2022 Series Com plete (Reported) Patient Last Documented On 3 10:38AM ; [facility] Td 1 10/01/2022 Complete (Refused - Patient objection) [facility] Last Documented On 3 10:38AM ; [facility] Allergies Includes: Active, inactive, and resolved Allergies No Known Allergies Encounters Includes: Encounters from 10/20/2023 through 10/19/2024 Encounter Provider Location Date Check-In Time Check-Out Time Diagnosis Follow Up Asha Vieira APRN [facility] 5 10:56AM 12:04PM Overweight Insurance Includes: Active Insurance Policies Plan Name Member ID Group # Subscriber Relationship Effect brenna Dates 1 - Medicare Part B [facility] [id number] Laney Villavicencio Self 2 - [employer] [id number] Laney Alston 07/07/2021 - Unknown Clinical Notes Includes: Signed Clinical Notes starting from 06/20/2022 * Progress note Date Encounter Last Documented by 08/19/2024 Follow Up Last documented on 08/19/2024; 3:57 PM, Asha Vieira APRN; [facility] Active Problems & Conditions - Pain [...]
--- OUTSIDE RECORDS SUMMARY | 2024-10-19 08:34 | XMS_ITS | Clinical Summary ---
Author Organization [facility] , [facility] Address [address] [place] [place] [address] Phone Care Team Providers Care Soldering Inspector Name Role Phone Jasmeet Talavera Primary Care Provider [phone] Jose Enrique GAVIN, Bartolo Smith Unavailable [phone] Reason for Visit and Chief Complaint The Chief Complaint is: right hand pain Problems Includes: Problems addressed during this encounter and other active Problems All Visits Onset Date Resolved Date Provider Condition S tatus Pain in the Right Hand Only 01/29/2018 Bartolo Quispe MD Active Last Documented On 8 9:51AM ; [facility], [facility] Plan of Treatment 1. Trigger finger injection the patient's right [...] into the tendon sheath of the ring using a 27-gauge needle and a 3 mL syringe, the needle is withdrawn the patient tolerates this well. 3. She will follow-up as needed. - Last Documented On 10/01/2022 10:54AM ; [facility], [facility] Instructions to patient Lose weight Last Documented On 2 2:01PM ; [facility] Assessments Includes: Assessments from this encounter Findings 1. Recurrence of right ring trigger finger - Last Documented On 10/01/2022 10:54AM ; [facility] 2. Right long trigger finger - Last Documented On 10/01/2022 10:54AM ; [facility] Instructions Includes: Instructions from this encounter Instructions to patient Lose weight Last Documented On 2 2:01PM ; [facility], [facility] Medical Equipment - Implanted Devices Includes: Current Devices No Medical Equipment Recorded Medications Includes: Medications discussed during this encounter and other current Medications Discontinued / Stopped on this date on 01/29/2018 Adult Aspirin EC Low Strength 81MG Oral Tablet Delayed Release Provider: Diagnosis: Last Documented On 2 2:02PM By Berna Davis ; [facility] HM Super Vitamin B Complex/C Oral Tablet Provider: Diagnosis: Last Documented On 2 2:02PM By Berna Davis ; [facility] Naproxen Sodium 220MG Oral Capsule Pr ovider: Diagnosis: Last Documented On 2 2:02PM By Berna Davis ; [facility] Fish Oil 1000MG Oral Capsule Provider : Diagnosis: Last Documented On 2 2:02PM By Berna Davis ; [facility] Glimepiride 2MG Oral Tablet Provider: Diagnosis: Last Documented On 2 2:02PM By Berna Davis ; [facility], [facility] Current Medications (continue as prescribed) busPIRone HCl 5 MG Oral Tablet 08/13/2024 Provider: Viviane Bah APRN Diagnosis: Last Documented On 5 11:10AM By Asha Vieira ; [facility] Losartan Potassium 50 MG Oral Tablet 08/13/2024 Prov ider: Viviane Bah APRN Diagnosis: Last Documented On 5 11:10AM By Asha Vieira ; [facility], [facility] metFORMIN HCl ER 500 MG Oral Tablet Extended Rel ease 24 Hour 08/13/2024 Provider: Diagnosis: Last Documented On 5 11:10AM By Asha Vieira ; [facility], [facility] Rosuvastatin Calcium 40 MG O ral Tablet 08/13/2024 Provider: Viviane dunn APRN Diagnosis: Last Documented On 5 11:10AM By Asha Vieira ; [facility] H[facility] Mix 75/25 KwikPen (7 5-25) 100 UNIT/ML Subcutaneous Suspension Pen-injector 07/28/2024 Provider: Diagnosis: Last Documented On 5 11:10AM By Asha Vieira ; [facility] Past Medications on file Pravastatin Sodium 10 MG Oral Tablet 01/03/2022 - 07/3 Provider: Diagnosis: Last Documented On 2 2:01PM By Berna Davis ; [facility] Jardiance 10 MG Oral Tablet 01/03/2022 - 02/02/2022 Pr ovider: Diagnosis: Last Documented On 2 2:01PM By Berna Davis ; [facility] Medications Administered Includes: Administered Medications from this encounter No Administered Medications Recorded Vital Signs Includes: Vital Signs from this encounter Vital Name 01/03/2022 02:01P Blood Pressure Sitting (mmHg) 121/72 Pulse Rate-Sitting (bpm) 91 Height (in) 68 Weight (lb) 236 Body Mass Index (kg/m2) 35.9 Body Surface Area (m2) 2.2 Note: rj Last Documented: On 01/03/2022 2:08PM ; [facility] Results Includes: Results discussed during this encounter No Results Recorded For Specified Dates History of Present Illness Includes: History of Present Illness from this encounter ELLIE Villavicencio is a 66 year old female. - Allergy list reviewed - Medication list reviewed with patient - Patient pain level from 1-10: 1 - No previous treatment. Patient returns today with a recurrence of triggering in her right ring finger and new onset of triggering in her right long finger. 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 She is requesting cortisone injections today. Social History Description Last Updated Non-smoker 01/03/2022 Last Documented On 3 10:54AM ; [facility] Caffeine use 01/03/2022 Last Documented On 3 10:54AM ; [facility] No recent change in diet 01/03/2022 Last Documented On 3 10:54AM ; [facility] Not a current smoker. 01/03/2022 Last Documented On 3 10:54AM ; [facility] Not exercising regularly 01/03/2022 Last Documented On 3 10:54AM ; [facility] Not using alcohol 01/03/2022 Last Documented On 3 10:54AM ; [facility] Not using drugs 01/03/2022 Last Documented On 3 10:54AM ; [facility] Smoking Status Unknown Procedures and Surgical History Includes: Procedures from this encounter Procedures Code Diagnosis Performing Provider Service L ocation Service Date use of tobacco assessment performed 1000F Last Documented On 2 2:01PM ; [facility] patient screened for future fall risk 3288F Last Documented On 2 2:01PM ; [facility] Medical History Includes: Medical History addressed during this encounter Description Last Updated History of diabetes mellitus 01/03/2022 Last Documented On 3 10:54AM ; [facility] History of hepatitis 01/03/2022 Last Documented On 3 10:54AM ; [facility] History of Hypertension 01/03/2022 Last Documented On 3 10:54AM ; [facility] Past Surgical History: removal of ovary, tonsillectomy, tubal ligation 01/03/2022 Last Documented On 3 10:54AM ; [facility] Recent immunization for flu 01/03/2022 Last Documented On 3 10:54AM ; [facility], [facility] Recent immunization for pneumococcal pne umonia 01/03/2022 Last Documented On 3 10:54AM ; [facility], [facility] Family History Includes: Family History addressed during this encounter Description Last Updated Family history of heart disease 01/04/20 Last Documented On 3 10:54AM ; [facility] Review of Systems Includes: Review [...] wheezing. Gastrointestinal: Heartburn. No abdominal pain. No Indigestion. Acid Reflux. No Peptic Ulcer, no GI Stomach Bleed, and no Ulcers. Endocrine: No hot flashes and no muscle [...] Location Date Check-In Time Check-Out Time Diagnosis Physician Specified Asha Vieira APRN [facility] 01/04/20 22 1:34PM 2:34PM Insurance Includes: Active Insurance Policies Plan Name Member ID Group # Subscriber Relationship Effect brenna Dates 1 - Medicare Part B [facility] [id number] Laney Villavicenico Self 2 - [place] [employer] [facility] [id number] Laney Villavicencio Self 07/07/2021 - Unknown Clinical Notes Includes: Clinical Notes from this encounter * Progress note Date Encounter Last Documented by 01/03/2022 Physician Specified Art wiggins on 10/01/2022; 10:54 AM, Asha Vieira APRN; [facility], [facility] Active Problems & Conditions - Pain in the Right Hand Only Chief Complaint The Chief Complaint is: Right hand pain. Referred Here Referred by pcp. History of Present Illness Laney Villavicencio is a 66 year old female. - Allergy list reviewed - Medication list reviewed with patient - Patient pain level from 1-10: 1 - No previous treatment. Patient returns today with a recurrence of triggering in her right ring finger and new onset of triggering in her right long finger. 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 She is requesting cortisone injections today. Current Medication - Alogliptin-Metformin HCl 12.5-500MG Oral Tablet 12.5-500 MG once a day 30 days, 0 refills - busPIRone HCl 5 MG Oral Tablet 30 days, 0 refills - Jardiance 10 MG Oral Tablet once a day 30 days, 0 refills - Losartan Potassium 25 MG Oral Tablet 30 days, 0 refills - metFORMIN HCl ER 500 MG Oral Tablet Extended Release 24 Hour 30 days, 0 refills - Pravastatin Sodium 10 MG Oral Tablet once a day 30 days, 0 refills Past Medical/Surgical History Reported: Immunization History: Recent immunization for flu and for pneumococcal pneumonia. Diagnoses: Hypertension. Hepatitis. Diabetes mellitus Surgical: - Past Surgical History: removal of ovary, tonsillectomy, tubal ligation Social History Not a current smoker. Current diet: No recent change in diet. Caffeine use: Caffeine use. Tobacco use: Non-smoker. Alcohol: Not using alcohol. Drug Use: Not using drugs. Habits: Not exercising regularly. Allergies - No Known Allergies Family History Heart disease Review Of Systems Systemic: Not [...] wheezing. Gastrointestinal: Heartburn. No abdominal pain. No Indigestion. Acid Reflux. No Peptic Ulcer, no GI Stomach Bleed, and no Ulcers. Endocrine: No hot flashes and no muscle [...] allergic reaction. Physical Findings - Vitals taken 01/03/2022 02:01 pm rj BP-Sitting 121/72 mmHg Pulse Rate-Sitting 91 bpm Height 68 in Weight 236 lbs Body Mass Index 35.9 kg/m2 Body Surface Area 2.2 m2 Standard Measurements: - Patient was overweight. The patient is awake alert oriented in [...] She is tender to palpation over the A1 pulleys of both the right long and ring fingers. There is crepitus and active triggering. Assessment 1. Recurrence of right ring trigger finger 2. Right long trigger finger Counseling/Education - Lose weight Plan 1. Trigger finger injection the patient's right [...] into the tendon sheath of the ring using a 27-gauge needle and a 3 mL syringe, the needle is withdrawn the patient tolerates this well. 3. She will follow-up as needed. Practice Management Use of tobacco assessment performed and patient screened for future fall risk. Care Team - Jasmeet Talavera User Defined 3 DOMINANT HAND: right INJURY? no HOW DID THIS HAPPEN? unsure DURATION OF SYMPTOMS: 2 months PREVIOUS TREATMENT: biofreeze JOSEPHINE (R) SALES UTILITY REPRESENTATIVE 18 (R) REG 10 (R) PINCH 11 (L) SALES UTILITY REPRESENTATIVE 21 (L) REG 18 (L) PINCH 16 2 POINT THUMB INDEX LONG RING SMALL R ULNAR 5 3 5 5 5 R RADIAL 3 3 3 5 3 L ULNAR 3 3 5 5 3 L RADIAL 3 3 3 3 5
--- OUTSIDE RECORDS SUMMARY | 2024-10-19 08:34 | XMS_ITS | Clinical Summary ---
Author Organization [facility] , [facility] Address [address] [address] Phone Care Team Providers Care Wash Rack Operator Name Role Phone Jasmeet Talavera Primary Care Provider [phone] Jose Enrique GAVIN, Bartolo Smith Unavailable [phone] Reason for Visit and Chief Complaint The Chief Complaint is: right hand pain Problems Includes: Problems addressed during this encounter and other active Problems All Visits Onset Date Resolved Date Provider Condition S tatus Pain in the Right Hand Only 01/29/2018 Bartolo Quispe MD Active Last Documented On 8 9:51AM ; [facility], [facility] Plan of Treatment 1. Trigger finger injection the patient's right hand is prepped with an alcohol swab 5 mg of Kenalog in 1 mL of 2% lidocaine are instilled into the tendon sheath of the long finger using a 27-gauge needle and a 3 mL syringe, the needle is withdrawn the patient tolerates this well. 2. She prefers to follow-up as needed. - Last Documented On 10/01/2022 10:54AM ; [facility], [facility] Instructions to patient Lose weight Last Documented On 3 10:32AM ; [facility], [facility] Assessments Includes: Assessments from this encounter Findings Right long trigger finger - Last Documented On 10/01/2022 10:54AM ; [facility], [facility] Instructions Includes: Instructions from this encounter Instructions to patient Lose weight Last Documented On 3 10:32AM ; [facility], [facility] Medical Equipment - Implanted Devices Includes: Current Devices No Medical Equipment Recorded Medications Includes: Medications discussed during this encounter and other current Medications Current Medications (continue as prescribed) busPIRone HCl 5 MG Oral Tablet 08/13/2024 Provider: Viviane Bah APRN Diagnosis: Last Documented On 5 11:10AM By Asha Vieira ; [facility], [facility] Losartan Potassium 50 MG Oral Tablet 08/13/2024 Prov ider: Viviane Bah APRN Diagnosis: Last Documented On 5 11:10AM By Asha Vieira ; [facility], [facility] metFORMIN HCl ER 500 MG Oral Tablet Extended Rel ease 24 Hour 08/13/2024 Provider: Diagnosis: Last Documented On 5 11:10AM By Asha Vieira ; [facility], [facility] Rosuvastatin Calcium 40 MG O ral Tablet 08/13/2024 Provider: Viviane dunn APRN Diagnosis: Last Documented On 5 11:10AM By Asha Vieira ; [facility], [facility] HumaLOG Mix 75/25 KwikPen (7 5-25) 100 UNIT/ML Subcutaneous Suspension Pen-injector 07/28/2024 Provider: Diagnosis: Last Documented On 5 11:10AM By Asha Vieira ; [facility] Past Medications on file Pravastatin Sodium 10 MG Oral Tablet 01/03/2022 - 01/06 Provider: Diagnosis: Last Documented On 2 2:01PM By Berna Davis ; [facility], [facility] Jardiance 10 MG Oral Tablet 01/03/2022 - 02/02/2022 Pr ovider: Diagnosis: Last Documented On 2 2:01PM By Berna Davis ; [facility], [facility] Medications Administered Includes: Administered Medications from this encounter No Administered Medications Recorded Vital Signs Includes: Vital Signs from this encounter Vital Name 10/01/2022 10:37A Blood Pressure Sitting (mmHg) 124/78 Pulse Rate-Sitting (bpm) 86 Height (in) 68 Weight (lb) 235 Body Mass Index 35.7 Body Surface Area 2.2 Note: [facility] Last Documented: On 10/01/2022 10:39A M ; [facility], [facility] Results Includes: Results discussed during this encounter No Results Recorded For Specified Dates History of Present Illness Includes: History of Present Illness from this encounter ELLIE Laney Villavicencio is a 66 year old female. - Allergy list reviewed - Problem list reviewed - Medication list reviewed - Medication list reviewed with patient - Patient pain level from 1-10: 1 - No previous treatment. Patient returns today with a recurrence of triggering in her right long finger. 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 She last received a cortisone injection to this finger on 01/03/22. She is requesting a repeat cortisone injection today. Social History Description Last Updated Tobacco non-user 10/01/2022 Last Documented On 3 10:54AM ; [facility] Non-smoker 01/03/2022 Last Documented On 3 10:32AM ; [facility] Caffeine use 01/03/2022 Last Documented On 3 10:32AM ; [facility] No recent change in diet 01/03/2022 Last Documented On 3 10:32AM ; [facility] Not a current smoker. 01/03/2022 Last Documented On 3 10:32AM ; [facility] Not exercising regularly 01/03/2022 Last Documented On 3 10:32AM ; [facility] Not using alcohol 01/03/2022 Last Documented On 3 10:32AM ; [facility] Not using drugs 01/03/2022 Last Documented On 3 10:32AM ; [facility] No recent change in diet 07/23/2018 Last Documented On 3 10:32AM ; [facility] No tobacco use 07/23/2018 Last Documented On 3 10:32AM ; [facility] Not a current smoker 07/23/2018 Last Documented On 3 10:32AM ; [facility] Smoking status : Never smoker 07/23/2018 Last Documented On 3 10:32AM ; [facility] Procedures and Surgical History Includes: Procedures from this encounter Procedures Code Diagnosis Performing Provider Service L ocation Service Date use of tobacco assessment performed 1000F Last Documented On 3 10:32AM ; [facility] patient screened for future fall risk 3288F Last Documented On 3 10:32AM ; [facility], [facility] patient screened for future fall risk: documentation of any fall with injury in past year 1100F Last Documented On 3 10:39AM ; [facility], [facility] Medical History Includes: Medical History addressed during this encounter Description Last Updated History of diabetes mellitus 01/03/2022 Last Documented On 3 10:32AM ; [facility] History of hepatitis 01/03/2022 Last Documented On 3 10:32AM ; [facility], [facility] History of Hypertension 01/03/2022 Last Documented On 3 10:32AM ; [facility] Past Surgical History: removal of ovary, tonsillectomy, tubal ligation 01/03/2022 Last Documented On 3 10:32AM ; [facility] Recent immunization for flu 01/03/2022 Last Documented On 3 10:32AM ; [facility], [facility] Recent immunization for pneumococcal pne umonia 01/03/2022 Last Documented On 3 10:32AM ; [facility] ovary removal, tubal ligation, tonsilect tori 07/23/2018 Last Documented On 3 10:32AM ; [facility] Intermittent hypertension 07/23/2018 Last Documented On 3 10:32AM ; [facility] Family History Includes: Family History addressed during this encounter Description Last Updated Family history of heart disease 01/04/20 Last Documented On 3 10:32AM ; [facility] Paternal history of family history of he art disease 07/23/2018 Last Documented On 3 10:32AM ; [facility], [facility] Review of Systems Includes: Review of [...] and Immunologic: Complaint of seasonal allergic reaction. Reviewed 10/01/22 Mental Status Includes: Mental Status from this encounter Description No anxiety Functional Status Includes: Functional Status from this encounter No Functional Status Recorded Physical Exam Includes: Physical Exam from this encounter Immunizations Includes: Immunizations addressed during this encounter Vaccine Dose # Date Site Reaction(s) Status Source Influenza 1 04/06/2022 Complete (Reported) Patient Last Documented On 3 10:38AM ; [facility], [facility] PCV (Pneumovax 23) 1 04/06/2022 Series Com plete (Reported) Patient Last Documented On 3 10:38AM ; [facility], [facility] Td 1 10/01/2022 Complete (Refused - Patient objection) [facility], [facility] Last Documented On 3 10:38AM ; [facility], [facility] Allergies Includes: Active Allergies No Known Allergies Encounters Encounter Provider Location Date Check-In Time Check- Out Time Diagnosis Follow Up Asha Vieira [facility]N [facility] 3 10:32AM 10:50AM Insurance Includes: Active Insurance Policies Plan Name Member ID Group # Subscriber Relationship Effect brenna Dates 1 - Medicare Part B [facility] [id number] Laney Villavicencio Self 2 - [place] [employer] [facility] [id number] Laney Alston 07/07/2021 - Unknown Clinical Notes Includes: Clinical Notes from this encounter * Progress note Date Encounter Last Documented by 10/01/2022 Follow Up Last documented on 10/01/2022; 10:54 AM, sAha Vieira APRN; [facility], [facility] Active Problems & Conditions - Pain in the Right Hand Only Chief Complaint The Chief Complaint is: Right hand pain. Referred Here Referred by pcp. History of Present Illness Laney Villavicencio is a 66 year old female. - Allergy list reviewed - Problem list reviewed - Medication list reviewed - Medication list reviewed with patient - Patient pain level from 1-10: 1 - No previous treatment. Patient returns today with a recurrence of triggering in her right long finger. 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 She last received a cortisone injection to this finger on 01/03/22. She is requesting a repeat cortisone injection today. Current Medication - Alogliptin-Metformin HCl 12.5-500MG Oral Tablet 12.5-500 MG once a day 30 days, 0 refills - busPIRone HCl 5 MG Oral Tablet 30 days, 0 refills - Losartan Potassium 25 MG Oral Tablet 30 days, 0 refills - metFORMIN HCl ER 500 MG Oral Tablet Extended Release 24 Hour 30 days, 0 refills Past Medical/Surgical History [...] and Immunologic: Complaint of seasonal allergic reaction. Reviewed 10/01/22 Physical Findings - Vitals taken 10/01/2022 10:37 am [facility] BP-Sitting 124/78 mmHg Pulse Rate-Sitting 86 bpm Height 68 in Weight 235 lbs Body Mass Index 35.7 kg/m2 Body Surface Area 2.2 m2 Standard [...] is tender to palpation over the A1 jonatan of the right long finger. There is crepitus and active triggering. Assessment Right long trigger finger Vaccinations - Influenza Dose #1 Status: Prev Hist Date: 04/06/2022 - PCV (Pneumovax 23) Dose #1 Status: Prev Hist Date: 04/06/2022 - Td Dose #1 Status: Refused Patient Objection Date: 10/01/2022 - PCV (Pneumovax 23) Dose #2 Status: Series Complete Date: 10/01/2022 Counseling/Education - Lose weight Plan 1. Trigger finger injection the patient's right hand is prepped with an alcohol swab 5 mg of Kenalog in 1 mL of 2% lidocaine are instilled into the tendon sheath of the long finger using a 27-gauge needle and a 3 mL syringe, the needle is withdrawn the patient tolerates this well. 2. She prefers to follow-up as needed. Practice Management Use of tobacco assessment performed and patient screened for future fall risk documentation of any fall with injury in past year. Care Team - Jasmeet Talavera
--- OUTSIDE RECORDS SUMMARY | 2024-10-19 08:34 | XMS_ITS ---
Care Plan - [facility], [facility] Created on: October 19, 2024 Laney Villavicencio : 1955 Sex: Female Author Organization [facility] Address [address] [place] [address] Phone Care Team Providers Care Academic Coordinator Name Role Phone Jasmeet Talavera Primary Care Provider [phone] Jose Enrique GAVIN, Bartolo Smith Unavailable [phone]
--- OUTSIDE RECORDS SUMMARY | 2024-10-19 08:34 | XMS_ITS | Clinical Summary ---
Author Organization [facility] Address [address] [place] [address] Phone Care Team Providers Care Gis Administrator Name Role Phone Jasmeet Talavera Primary Care Provider [phone] Jose Enrique GAVIN, Bartolo Smith Unavailable [phone] Reason for Visit and Chief Complaint The Chief Complaint is: right hand pain Problems Includes: Problems addressed during this encounter and other active Problems All Visits Onset Date Resolved Date Provider Condition S tatus Pain in the Right Hand Only 01/29/2018 Bartolo Quispe MD Active Last Documented On 8 9:51AM ; [facility], [facility] Plan of Treatment Fall Risk Assessment: This patient has been [...] with the patient. - Last Documented On 05/13/2023 11:10AM ; [facility], [facility] 1. Trigger finger injection the patient's right hand is prepped with an alcohol swab 5 mg of Kenalog in 1 mL of 2% lidocaine are instilled into the tendon sheaths of the long and ring fingers using a 27-gauge needle and a 3 mL syringe, the needle is withdrawn the patient tolerates this well. 2. She may follow up as needed. - Last Documented On 05/13/2023 11:10AM ; [facility], [facility] Instructions to patient Lose weight Last Documented On 3 10:41AM ; [facility], [facility] Assessments Includes: Assessments from this encounter Findings Right long and ring trigger fingers - Last Documented On 05/13/2023 11:10AM ; [facility], [facility] Instructions Includes: Instructions from this encounter Instructions to patient Lose weight Last Documented On 3 10:41AM ; [facility], [facility] Medical Equipment - Implanted Devices Includes: Current Devices No Medical Equipment Recorded Medications Includes: Medications discussed during this encounter and other current Medications Current Medications (continue as prescribed) busPIRone HCl 5 MG Oral Tablet 08/13/2024 Provider: Viviane Bah APRN Diagnosis: Last Documented On 5 11:10AM By Asha Vieira ; [facility], [facility] Losartan Potassium 50 MG Oral Tablet 08/13/2024 Prov ider: Viviane Bah APRN Diagnosis: Last Documented On 5 11:10AM By Asha Vieira ; [facility], [facility] metFORMIN HCl ER 500 MG Oral Tablet Extended Rel ease 24 Hour 08/13/2024 Provider: Diagnosis: Last Documented On 5 11:10AM By Asha Vieira ; [facility], [facility] Rosuvastatin Calcium 40 MG O ral Tablet 08/13/2024 Provider: Viviane dunn APRN Diagnosis: Last Documented On 5 11:10AM By Asha Vieira ; [facility], [facility] HumaLOG Mix 75/25 KwikPen (7 5-25) 100 UNIT/ML Subcutaneous Suspension Pen-injector 07/28/2024 Provider: Diagnosis: Last Documented On 5 11:10AM By Asha Vieira ; [facility], [facility] Past Medications on file Pravastatin Sodium 10 MG Oral Tablet 01/03/2022 - 01/06 Provider: Diagnosis: Last Documented On 2 2:01PM By Berna Davis ; [facility], [facility] Jardiance 10 MG Oral Tablet 01/03/2022 - 02/02/2022 Pr ovider: Diagnosis: Last Documented On 2 2:01PM By Berna Davis ; [facility], [facility] Medications Administered Includes: Administered Medications from this encounter No Administered Medications Recorded Vital Signs Includes: Vital Signs from this encounter Vital Name 05/13/2023 10:47A Height (in) 68 Weight (lb) 239 Body Mass Index 36.3 Body Surface Area 2.2 Note: bdf Last Documented: On 05/13/2023 10:47A M ; [facility] Results Includes: Results discussed during this encounter No Results Recorded For Specified Dates History of Present Illness Includes: History of Present Illness from this encounter HPI Laney Villavicencio is a 67 year old female. - Allergy list reviewed - Problem list reviewed - Medication list reviewed - Medication list reviewed with patient - Patient pain level from 1-10: 1 - No previous treatment. Patient returns today with a recurrence of triggering in her right long finger and new onset of triggering in her right ring finger. She states her previous cortisone injection to her right long finger on 10/01/2022 worked well, but has worn off. She is requesting repeat cortisone injections today. Social History Description Last Updated Tobacco non-user 10/01/2022 Last Documented On 3 10:41AM ; [facility] Non-smoker 01/03/2022 Last Documented On 3 10:41AM ; [facility] Caffeine use 01/03/2022 Last Documented On 3 10:41AM ; [facility] No recent change in diet 01/03/2022 Last Documented On 3 10:41AM ; [facility] Not a current smoker. 01/03/2022 Last Documented On 3 10:41AM ; [facility] Not exercising regularly 01/03/2022 Last Documented On 3 10:41AM ; [facility] Not using alcohol 01/03/2022 Last Documented On 3 10:41AM ; [facility] Not using drugs 01/03/2022 Last Documented On 3 10:41AM ; [facility] No recent change in diet 07/23/2018 Last Documented On 3 10:41AM ; [facility] No tobacco use 07/23/2018 Last Documented On 3 10:41AM ; [facility] Not a current smoker 07/23/2018 Last Documented On 3 10:41AM ; [facility] Smoking status : Never smoker 07/23/2018 Last Documented On 3 10:41AM ; [facility] Procedures and Surgical History Includes: Procedures from this encounter Procedures Code Diagnosis Performing Provider Service L ocation Service Date use of tobacco assessment performed 1000F Last Documented On 3 10:41AM ; [facility] patient screened for future fall risk 3288F Last Documented On 3 10:41AM ; [facility] patient screened for future fall risk: documentation of any fall with injury in past year 1100F Last Documented On 3 10:41AM ; [facility], [facility] Medical History Includes: Medical History addressed during this encounter Description Last Updated History of diabetes mellitus 01/03/2022 Last Documented On 3 10:41AM ; [facility] History of hepatitis 01/03/2022 Last Documented On 3 10:41AM ; [facility] History of Hypertension 01/03/2022 Last Documented On 3 10:41AM ; [facility] Past Surgical History: removal of ovary, tonsillectomy, tubal ligation 01/03/2022 Last Documented On 3 10:41AM ; [facility] Recent immunization for flu 01/03/2022 Last Documented On 3 10:41AM ; [facility] Recent immunization for pneumococcal pne umonia 01/03/2022 Last Documented On 3 10:41AM ; [facility] ovary removal, tubal ligation, tonsilect tori 07/23/2018 Last Documented On 3 10:41AM ; [facility] Intermittent hypertension 07/23/2018 Last Documented On 3 10:41AM ; [facility] Family History Includes: Family History addressed during this encounter Description Last Updated Family history of heart disease 01/04/20 Last Documented On 3 10:41AM ; [facility] Paternal history of family history of he art disease 07/23/2018 Last Documented On 3 10:41AM ; [facility], [facility] Review of Systems Includes: Review [...] Time Diagnosis Follow Up Asha Vieira APRN [facility] 3 10:39AM 11:26AM Insurance Includes: Active Insurance Policies Plan Name Member ID Group # Subscriber Relationship Effect brenna Dates 1 - Medicare Part B [facility] [id number] Laney Villavicencio Self 2 - [employer] [facility] [id number] Laney Villavicencio Self 07/07/2021 - Unknown Clinical Notes Includes: Clinical Notes from this encounter * Progress note Date Encounter Last Documented by 05/13/2023 Follow Up Last documented on 05/13/2023; 11:10 AM, Asha Vieira APRN; [facility] Active Problems & Conditions - Pain in the Right Hand Only Chief Complaint The Chief Complaint is: Right hand pain. Referred Here Referred by pcp. History of Present Illness Laney Villavicencio is a 67 year old female. - Allergy list reviewed - Problem list reviewed - Medication list reviewed - Medication list reviewed with patient - Patient pain level from 1-10: 1 - No previous treatment. Patient returns today with a recurrence of triggering in her right long finger and new onset of triggering in her right ring finger. She states her previous cortisone injection to her right long finger on 10/01/2022 worked well, but has worn off. She is requesting repeat cortisone injections today. Current Medication - Alogliptin-Metformin [...] allergic reaction. Physical Findings - Vitals taken 05/13/2023 10:47 am bdf Height 68 in Weight 239 lbs Body [...] A1 pulleys. There is crepitus and active triggering. Assessment Right long and ring trigger fingers Counseling/Education - Lose weight Plan Fall Risk Assessment: This patient has been [...] 2% lidocaine are instilled into the tendon sheaths of the long and ring fingers using a 27-gauge needle and a 3 mL syringe, the needle is withdrawn the patient tolerates this well. 2. She may follow up as needed. Notes This dictation was done with voice recognition software and may contain errors and omissions. Practice Management Use of tobacco assessment performed and patient screened for future fall risk documentation of any fall with injury in past year. Care Team - Jasmeet Talavera
[2024-10-19 09:26] LABS: Albumin Level 4.3 g/dl (3.5-5.0); Chloride 103 mmol/L (98-107); Sodium 142 mmol/L (136-145)
[2024-10-19 09:28] LABS: Hemoglobin A1C 7.3 % (4.0-6.0)
[2024-10-19 09:29] LABS: Alanine Aminotransferase 20 U/L (12-78); Albumin/Globulin Ratio 1.4 (1.1-1.8); Alkaline Phosphatase 50 U/L (38-126); Aspartate Amino Transferase 22 U/L (14-36); Bilirubin,Total 0.6 mg/dl (0.2-1.3); Blood Urea Nitrogen 15 mg/dl (7-17); Carbon Dioxide 30 mmol/L (22.0-30.0); Cholesterol 129 mg/dl (140-200); Estimated Glomerular Filt Rate 83 ml/min (>60); GFR (African American) 100 ML/MIN (>60); Total Protein,Serum 7.3 g/dl (6.3-8.2); Triglycerides 87 mg/dl (30-150); VLDL Cholesterol 17 mg/dL (0-40)
[2024-10-19 09:30] LABS: Calcium 10.1 mg/dl (8.4-10.2); Chol/HDL Ratio 2.9 (1-3.5); Glucose 128 mg/dl (74-100); HDL Cholesterol 45 mg/dl (40-60)
[2024-10-19 09:41] LABS: Direct LDL Cholesterol 68.71 mg/dL (100-129)
[2024-10-19 10:49] LABS: Creatinine,Urine Random 65 mg/dL (Not Estab.)
[2024-10-19 10:54] LABS: Microalbumin/Creatinine Ratio 29.6
== END 2024-10-19 23:59 | disposition home or self-care (01) ==
LOC: LAB 08:32
PROVIDERS: PCP Nurse Practitioner Family; Visit Provider Nurse Practitioner Family
DX: E78.5 Hyperlipidemia, unspecified (principal); E11.69 Type 2 diabetes mellitus with other specified complication; I10 Essential (primary) hypertension; Z79.84 Long term (current) use of oral hypoglycemic drugs; Z79.4 Long term (current) use of insulin
CPT/HCPCS: 36415; 80053; 80061; 82043; 82570; 83036